=== PATIENT | male | born 1945 | race Caucasian/White ===

== ENCOUNTER 2019-06-05 16:48 | Emergency (ER) | payer MEDICARE, BC ==
[2019-06-05 17:30] LABS: Hemoglobin 7.4 g/dL (14.0-18.0); Mean Corpuscular HGB CONC 30.2 g/dL (32.0-36.0); Mean Corpuscular Hemoglobin 20.8 pg (27.0-31.0); Mean Corpuscular Volume 68.9 fL (78.0-98.0); Mean Platelet Volume 9.1 fL (7.4-10.4); Platelet Count 274 thou/uL (130-400); RBC Distribution Width 17.6 % (11.5-14.5); Red Blood Cell (RBC) Count 3.54 mill/uL (4.70-6.10); White Blood Cell (WBC) Count 6.5 thou/uL (4.8-10.8)
--- NOTE | 2019-06-05 17:52 | RAD ---
Exam: Chest one view HISTORY:Short of breath Comparison: 10/14/2009 FINDINGS: Lungs: Pleural-based densities at the mid and inferior right hemithorax are present. There are patchy bibasilar densities. Cardiac silhouette:Enlarged cardiac silhouette Pulmonary vessels: Prominent bilateral pulmonary vasculature Pleural Spaces: Blunting of the right lateral costophrenic sulcus, which may relate to atelectasis, s carring or mild pleural fluid. Pneumothorax: None Osseous abnormalities: None of acuity. IMPRESSION: Bibasilar patchy densities, which could be on the basis of atelectasis, scar and/or pneum onitis. Superimposed mild right pleural fluid is not excluded. Enlarged cardiac silhouette and prominent pulmonary vasculature, indicative of CHF. Correlate clinica lly.
[2019-06-05 17:59] LABS: #Basophils 0.1 thou/uL (0.0-0.2); #Eosinphils 0.1 thou/uL (0.0-0.7); #Lymphocytes 0.9 thou/uL (1.20-3.40); #Monocytes 0.4 thou/uL (0.11-0.59); %Basophils 1.1 % (0.0-1.0); %Eosinophils 1.8 % (0.0-10.0); %Lymphocytes 14.2 % (21.0-51.0); %Monocytes 6.8 % (0.0-10.0); %Neutrophils 76.1 % (42.0-75.0); ALT (SGPT) 10 U/L (8-55); AST (SGOT) 15 U/L (5-34); Albumin 4.1 g/dL (3.4-4.8); Alkaline Phosphatase 59 U/L (40-110); Anion Gap 13 mmol/L (10-20); Anisocytosis SLIGHT = 6-15 cells (100X) (0-5/hpf); BUN (Urea Nitrogen) 15 mg/dL (8.4-25.7); Calc. Creatinine Clearance 0 mL/min (70-130); Carbon Dioxide 26 mmol/L (23-31); Chloride 103 mmol/L (98-107); Estimated GFR-MDRD 64; Globulin 2.4 g/dL (2.4-3.5); Glucose 139 mg/dL (83-110); Hypochromia SLIGHT = 6-15 cells (100X) (0-5/hpf); MDiff Complete? YES; Microcytosis SLIGHT = 6-15 cells (100X) (0-5/hpf); Platelet Morphology Comment Appears Adequate; Polychromasia SLIGHT = 2-3 cells (100X) (0-2/hpf); Protein, Total 6.5 g/dL (5.8-8.1); Sodium 139 mmol/L (136-145)
[2019-06-05 18:01] LABS: Potassium 2.9 mmol/L (3.5-5.1)
== END 2019-06-05 19:16 | disposition left against medical advice (07) ==
LOC: ERS 16:48
DX: Z53.21 Procedure and treatment not carried out due to patient leaving prior to being seen by health care provider (principal)
CPT/HCPCS: 36415; 71045; 80053; 83880; 84484; 85025; 93005

== ENCOUNTER 2019-06-06 12:20 | Inpatient (IN) | payer MEDICARE, BC ==
[2019-06-06 14:00] LABS: Hemoglobin 7.7 g/dL (14.0-18.0); Mean Corpuscular HGB CONC 29.9 g/dL (32.0-36.0); Mean Corpuscular Hemoglobin 20.8 pg (27.0-31.0); Mean Corpuscular Volume 69.6 fL (78.0-98.0); Mean Platelet Volume 9.6 fL (7.4-10.4); Platelet Count 352 thou/uL (130-400); RBC Distribution Width 18.2 % (11.5-14.5); Red Blood Cell (RBC) Count 3.69 mill/uL (4.70-6.10); White Blood Cell (WBC) Count 8.9 thou/uL (4.8-10.8)
[2019-06-06 14:26] LABS: ALT (SGPT) 11 U/L (8-55); AST (SGOT) 17 U/L (5-34); Albumin 4.2 g/dL (3.4-4.8); Alkaline Phosphatase 61 U/L (40-110); Anion Gap 13 mmol/L (10-20); BUN (Urea Nitrogen) 17 mg/dL (8.4-25.7); CK (CPK) 226 U/L (30-200); Calc. Creatinine Clearance 0 mL/min (70-130); Calcium 9.7 mg/dL (7.8-10.44); Carbon Dioxide 28 mmol/L (23-31); Chloride 103 mmol/L (98-107); Estimated GFR-MDRD 62; Globulin 3.1 g/dL (2.4-3.5); Glucose 133 mg/dL (83-110); Protein, Total 7.3 g/dL (5.8-8.1); Sodium 141 mmol/L (136-145)
[2019-06-06 14:31] LABS: #Basophils 0.1 thou/uL (0.0-0.2); #Eosinphils 0.2 thou/uL (0.0-0.7); #Lymphocytes 1.5 thou/uL (1.20-3.40); #Monocytes 0.5 thou/uL (0.11-0.59); #Neutrophils 6.6 thou/uL (1.40-6.50); %Eosinophils 1.7 % (0.0-10.0); %Lymphocytes 16.9 % (21.0-51.0); %Monocytes 5.7 % (0.0-10.0); %Neutrophils 74.7 % (42.0-75.0); Anisocytosis SLIGHT = 6-15 cells (100X) (0-5/hpf); Elliptocytes SLIGHT = 2-5 cells (100X) (0-1/hpf); Hypochromia SLIGHT = 6-15 cells (100X) (0-5/hpf); MDiff Complete? YES; Microcytosis SLIGHT = 6-15 cells (100X) (0-5/hpf); Platelet Morphology Comment Appears Adequate
--- NOTE | 2019-06-06 16:33 | PDOC.FPRHP ---
- History of Present Illness Chief Complaint: shortness of breath History of Present Illness: 73 yo male complains of shortness of breath, but is short of breath at baseline , worse over the past 3-4 days, worse with walking to car. States he can't take a deep breath in. States he struggles walking stairs at football games. He came in yesterday for this complaint, felt like he was forgotten about, so he left. He has a pmhx of atrial fibrillation and sees cardiology for this. Sleeps in an elevated bed d/t orthopnea. Endorses swelling in his lower extremities. States he is borderline diabetic. Takes 4 advil every night for sleep. Takes zantac at night for belching, reflux sx. States he has had a low blood count for a while but has never had a colonoscopy. - Allergies/Adverse Reactions Allergies Allergy/AdvReac Type Severity Reaction Status Date / Time No Known Allergies Allergy Verified 06/06/19 18:48 - Home Medications Medication Instructions Recorded Confirmed Type Amlodipine [Norvasc] 10 mg PO DAILY 06/06/19 06/06/19 History Nebivolol HCl [Bystolic] 20 mg PO BID 06/06/19 06/06/19 History Ubidecarenone [CoQ-10] 400 mg PO DAILY 06/06/19 06/06/19 History Atorvastatin Calcium [Lipitor] 40 mg PO HS #30 tab 06/08/19 Rx Ferrous Sulfate 325 mg PO TID #90 tablet 06/08/19 Rx metFORMIN [Glucophage] 500 mg PO BID-WM #60 tab 06/08/19 Rx - History PMHx:pAF on plavix, HTN, Anemia, diabetes, hld PSHx: two prostate surgeries, bladder surgery 2/2 benign tumors FHx: dad- lung cancer, CAD s/p CABG Social:denies smoking, alcohol, drug use - Review of Systems General: reports: weight/appetite/sleep changes. denies: fever/chills, fatigue Respiratory: reports: shortness of breath, exercise intolerance. denies: cough , congestion Cardiovascular: reports: palpitation, orthopnea. denies: chest pain Gastrointestinal: reports: other (belching). denies: nausea, vomiting, diarrhea , abdominal pain Genitourinary: denies: incontinence, dysuria Skin: denies: rashes, lesions Musculoskeletal: denies: pain, tenderness Neurological: denies: numbness, syncope Psychological: denies: anxiety, depression - Vital signs BP: 163/90 HR: 70 RR: 20 Tmax: Pox: 96% on 3L Wt: - Physical Exam Constitutional: NAD, awake, alert and oriented, well developed HEENT: normocephalic and atraumatic, PERRLA Heart: RRR, normal S1/S2, no murmurs/rubs/gallops, no edema Lungs: CTAB, no respiratory distress, good air movement, no wheezing Abdomen: soft, non-tender, bowel sounds present Musculoskeletal: normal structure, normal tone Neurological: no focal deficit Skin: no rash/lesions, good turgor Heme/Lymphatic: no unusual bruising or bleeding Psychiatric: normal mood and affect, good judgment and insight FMR H&P: Results - Labs Result Diagrams: 06/09/19 05:40 06/09/19 05:40 Lab results: WBC 8.9 thou/uL (4.8-10.8) 06/06/19 13:20 Hgb 7.7 g/dL (14.0-18.0) L 06/06/19 13:20 Hct 25.7 % (42.0-52.0) L 06/06/19 13:20 MCV 69.6 fL (78.0-98.0) L 06/06/19 13:20 Plt Count 352 thou/uL (130-400) 06/06/19 13:20 Neutrophils % 74.7 % (42.0-75.0) 06/06/19 13:20 Sodium 141 mmol/L (136-145) 06/06/19 13:20 Potassium 3.0 mmol/L (3.5-5.1) L 06/06/19 13:20 Chloride 103 mmol/L (98-107) 06/06/19 13:20 Carbon Dioxide 28 mmol/L (23-31) 06/06/19 13:20 BUN 17 mg/dL (8.4-25.7) 06/06/19 13:20 Creatinine 1.16 mg/dL (0.7-1.3) 06/06/19 13:20 Glucose 133 mg/dL (83-110) H 06/06/19 13:20 Calcium 9.7 mg/dL (7.8-10.44) 06/06/19 13:20 Total Bilirubin 2.0 mg/dL (0.2-1.2) H 06/06/19 13:20 AST 17 U/L (5-34) 06/06/19 13:20 ALT 11 U/L (8-55) 06/06/19 13:20 Alkaline Phosphatase 61 U/L (40-110) 06/06/19 13:20 Creatine Kinase 226 U/L (30-200) H 06/06/19 13:20 Serum Total Protein 7.3 g/dL (5.8-8.1) 06/06/19 13:20 Albumin 4.2 g/dL (3.4-4.8) 06/06/19 13:20 - EKG Interpretation EK/15 atrial fibrillation inverted t wave in lead 3, otherwise no acute ischemic changes FMR H&P: A/P - Problem List (1) Symptomatic anemia Current Visit: Yes Status: Acute Code(s): D64.9 - ANEMIA, UNSPECIFIED (2) Hypokalemia Current Visit: Yes Status: Acute Code(s): E87.6 - HYPOKALEMIA (3) Hypertension Current Visit: Yes Status: Chronic Code(s): I10 - ESSENTIAL (PRIMARY) HYPERTENSION (4) Atrial fibrillation Current Visit: Yes Status: Acute Code(s): I48.91 - UNSPECIFIED ATRIAL FIBRILLATION (5) Diabetes Current Visit: Yes Status: Acute Code(s): E11.9 - TYPE 2 DIABETES MELLITUS WITHOUT COMPLICATIONS (6) Elevated brain natriuretic peptide (BNP) level Current Visit: Yes Status: Chronic Code(s): R79.89 - OTHER SPECIFIED ABNORMAL FINDINGS OF BLOOD CHEMISTRY (7) Hyperlipidemia Current Visit: Yes Status: Chronic Code(s): E78.5 - HYPERLIPIDEMIA, UNSPECIFIED - Plan 73 yo gentleman admitted for symptomatic anemia #symptomatic anemia- -d/t sx, was transfused one unit prbcs in the ER, will recheck 4 hours post transfusion -MCV low, suspect iron deficient anemia, however will order iron studies to further assess -ddx: acute blood loss anemia vs malignancy, however denies hematochezia, melena , hematemesis, but does endorses taking 4 advil every night "for sleep" 2/2 GERD -he has never had a colonoscopy, will trend H/H and consider GI consult in AM, however he refused a colonoscopy in the past, will order an FOBT in the meantime #hypokalemia- -will replace #Elevated BNP- -will recheck today, not fluid overloaded, would recommend outpatient TTE #Type 2 Diabetes- -hba1c, ssi, hypoglycemia protocol #Hyperlipidemia- -FLP, would recommend starting atorvastatin high intensity 2/2 hx of diabetes #htn- -restart amlodipine #afib -on plavix, however will hold d/t low H/H -continue bystolic CODE: DNR DVT: SCDs Dispo: if stable consider dc tomorrow Rolando Barraza MD, PGY-3 FMR H&P: Upper Level - Plan Date/Time: 06/06/19 1631 I, [], have evaluated this patient and agree with findings/plan as outlined by graphics intern resident. Pertinent changes/additions are listed here. Addendum - Attending - Attending Attestation Date/Time: 06/09/19 1047 I personally evaluated the patient and discussed the management with Dr. Isabel/ Madi on 06/06/2019 I agree with the History, Examination, Assessment and Plan documented above with any addition or exceptions noted below- 73 yo male with h/o A-fib, HTN, DM presented c/o SOB; worse over the past 3-4 days, worse with walking to car. Was seen in ER yesterday and found to be anemic but left before further evaluation due to thewait. Contacted by his director staffing and instructed to return to ER. Denies any CP, melena, hematochezi, change in bowels, abdominal pain. (+) heartburn. PMH/PSH/Med/SH reviewed and agree with resident's documentation. Afebrile VSS. Exam repeated by me and agree with resident's findings. Labs: H/H= 7.7/25.7 A/P: 1) Anemia- possible GI bleed- transfused 1 u pRBCs. Mnitor serial H/Hs. GI consulted. 2) A-fib- rate controlled. 3) HTN- stable; continue to monitor. - .
[2019-06-06] MEDS ORDERED: HumaLOG 300 UNITS/3 ML VIAL SC PRN (16:53)
[2019-06-06] MEDS ORDERED: Dextrose 50% Abboject 50 ML SYRINGE SLOW IVP PRN (16:53)
[2019-06-06] MEDS ORDERED: Acetaminophen 650 MG Suppository PR PRN (16:53)
[2019-06-06] MEDS ORDERED: Ondansetron ODT 4 MG TAB PO PRN (16:53)
[2019-06-06] MEDS ORDERED: Ondansetron PF 4 MG/2 ML Vial IVP PRN (16:53)
[2019-06-06] MEDS ORDERED: Dextrose 5% in Water 1,000 ML IV PRN (16:53)
[2019-06-06] MEDS ORDERED: Acetaminophen 325 MG TAB PO PRN (16:53)
[2019-06-06 16:59] LABS: Troponin I Less than 0.010 ng/mL (< 0.028)
[2019-06-06] MEDS ORDERED: Potassium Chloride 20 MEQ TAB PO SCH (17:15)
[2019-06-06 17:37] LABS: Reticulocyte Count 3.1 % (0.5-1.5)
[2019-06-06 17:53] LABS: Phosphorus 3.5 mg/dL (2.3-4.7)
[2019-06-06 17:56] LABS: Cardiac Risk 5.3 (Less than 4.5); Magnesium 1.9 mg/dL (1.6-2.6)
[2019-06-06 18:57] VITALS: BMI 30.9
[2019-06-06 19:51] LABS: Troponin I Less than 0.010 ng/mL (< 0.028)
[2019-06-06] MEDS: Pantoprazole 40 MG VIAL IVP SCH (20:12)
[2019-06-06 21:27] LABS: Hemoglobin 7.6 g/dL (14.0-18.0)
[2019-06-06] MEDS ORDERED: Fluticasone Propionate Nasal Spray 16 gm Bottle NASAL SCH (21:30)
[2019-06-06] MEDS ORDERED: Lidocaine 2% Viscous Solution 20 ML, Aluminum & Magnesium Hydroxide 30 ML, Donnatal Eli... SSW SCH (22:30)
[2019-06-06] MEDS ORDERED: GoLYTELY 4,000 ml Bottle PO SCH (22:45)
--- NOTE | 2019-06-07 01:06 | CON ---
DATE OF CONSULTATION: 06/06/2019 CHIEF COMPLAINT: Shortness of breath and chest pressure. HISTORY OF PRESENT ILLNESS: Mr. Hurley is a 73-year-old man who has had progressive shortness of breath on exertion over the last several days. Feels like he cannot take a full deep breath. He gets short of breath walking up any stairs or relatively short distances. He is followed with Dr. Ward for atrial fibrillation and has been on clopidogrel. He was found to have severe anemia when he went to the emergency room last night. However, he left the ER and then went back today for further care. He received a unit of transfusion. He does report some orthopnea lately. He has been taking Advil, 4 Advil each night to help sleep. He has taken some Zantac for reflux and belching. He did note lower extremity swelling yesterday more so than today. The swelling has gone down today. He reports a 40-pound weight loss over the last 7 to 8 months. He was 300 pounds and has lost down to 260 pounds. He states that this was with eating smaller meals. PAST MEDICAL HISTORY: Paroxysmal atrial fibrillation, hypertension, diabetes mellitus, hyperlipidemia, and anemia. PAST SURGICAL HISTORY: Prostate surgery and bladder surgery. FAMILY HISTORY: His mother had a large colon polyp requiring colon resection. His father had lung cancer. SOCIAL HISTORY: No alcohol, tobacco, or drugs. ALLERGIES: NO KNOWN DRUG ALLERGIES. MEDICATIONS: Prior to admission, amlodipine, clopidogrel, nebivolol, Advil as noted above, and Zantac as noted above. REVIEW OF SYSTEMS: Negative x10 systems reviewed except as stated in history of present illness. PHYSICAL EXAMINATION: VITAL SIGNS: Temperature 98.1, pulse 98, blood pressure 150/70, oxygen saturation 97%. GENERAL: He is in no acute distress. Alert and oriented x3. HEENT: Eyes have no scleral icterus. Oropharynx is clear without lesions. No cervical or supraclavicular lymphadenopathy. LUNGS: Clear to auscultation bilaterally. HEART: Regular rate and rhythm without murmur. ABDOMEN: Soft, nontender, and nondistended. Bowel sounds are present. EXTREMITIES: No lower extremity edema. LABORATORY DATA: His hemoglobin was 7.4 last night, 7.7 this afternoon and then after 1 unit transfusion, his hemoglobin is 7.6, MCV 69, white blood cell count 8.9, platelets are 352. Iron 23, TIBC 466, creatinine 1.16, BNP 365, bilirubin 2.0, AST 17, ALT 11, alkaline phosphatase 61. He had a hemoglobin A1c back in December of 2018 of 8.4. IMPRESSION: 1. Symptomatic iron-deficiency anemia. He has had no overt gastrointestinal blood loss. He has been on Plavix and Advil. His mother had a large colon polyp that required colon resection. 2. Paroxysmal atrial fibrillation, on Plavix. 3. Shortness of breath and chest heaviness. He ruled out for myocardial infarction by troponins. 4. 40-pound weight loss over the last 7 to 8 months. 5. Diabetes mellitus. This has not been treated with medications as of yet. RECOMMENDATIONS: 1. He will require an EGD and colonoscopy. 2. He is receiving blood transfusion tonight. We will plan for a clear-liquid diet tomorrow and then a bowel prep tomorrow afternoon for EGD and colonoscopy on Tuesday. 3. Cardiology consultation with Dr. Ward prior to anesthesia on Tuesday. He has had some ongoing shortness of breath and chest heaviness. This is likely secondary to the anemia. However, given his prior cardiac history, I would like input from Cardiology prior to anesthesia. 4. NSAID avoidance. Job ID: [id number]
[2019-06-07] MEDS ORDERED: diphenhydrAMINE 25 MG CAP PO SCH (02:15)
[2019-06-07] MEDS ORDERED: diphenhydrAMINE 50 MG/ML VIAL IVP SCH (02:30)
[2019-06-07 05:29] LABS: #Basophils 0.1 thou/uL (0.0-0.2); #Eosinphils 0.2 thou/uL (0.0-0.7); #Lymphocytes 1.3 thou/uL (1.20-3.40); #Monocytes 0.4 thou/uL (0.11-0.59); #Neutrophils 5.8 thou/uL (1.40-6.50); %Basophils 0.8 % (0.0-1.0); %Eosinophils 2.2 % (0.0-10.0); %Lymphocytes 16.5 % (21.0-51.0); %Monocytes 5.3 % (0.0-10.0); %Neutrophils 75.2 % (42.0-75.0); Hemoglobin 8.1 g/dL (14.0-18.0); Mean Corpuscular HGB CONC 30.1 g/dL (32.0-36.0); Mean Corpuscular Hemoglobin 21.8 pg (27.0-31.0); Mean Corpuscular Volume 72.3 fL (78.0-98.0); Mean Platelet Volume 9.6 fL (7.4-10.4); Platelet Count 289 thou/uL (130-400); RBC Distribution Width 19.1 % (11.5-14.5); Red Blood Cell (RBC) Count 3.74 mill/uL (4.70-6.10); White Blood Cell (WBC) Count 7.8 thou/uL (4.8-10.8)
[2019-06-07 05:53] LABS: Anion Gap 14 mmol/L (10-20); BUN (Urea Nitrogen) 15 mg/dL (8.4-25.7); Calc. Creatinine Clearance 107 mL/min (70-130); Carbon Dioxide 22 mmol/L (23-31); Chloride 107 mmol/L (98-107); Estimated GFR-MDRD 71; Glucose 146 mg/dL (83-110); Potassium 3.1 mmol/L (3.5-5.1); Sodium 140 mmol/L (136-145)
[2019-06-07] MEDS ORDERED: Ferrous Sulfate 325 MG TAB PO SCH (08:00)
--- NOTE | 2019-06-07 08:18 | PDOC.FM ---
- Subjective Subjective: Pt says he is feeling better this morning, just "weak as hell." Denies SOB today , describes previous episodes as if he could not get a full deep breath. Denies pleuritic pain. No issues w/ bowel or bladder. Leg swelling has improved; yesterday L leg swelling was > R. - Objective MAR Reviewed: Yes Vital Signs & Weight: Vital Signs (12 hours) Temp Pulse Resp Pulse Ox 06/07/19 06:45 98.1 F 62 18 97 06/07/19 04:00 77 18 96 06/07/19 03:45 98.2 F 73 18 Weight Weight 117.299 kg Most Recent Monitor Data NIBP 148/70 I&O: 06/06/19 06/07/19 06/08/19 06:59 06:59 06:59 Intake Total 500 Output Total 800 Balance -300 Result Diagrams: 06/07/19 05:13 06/07/19 05:13 Radiology Reviewed by me: Yes (CT images and report) Phys Exam - Physical Examination Constitutional: NAD HEENT: moist MMs, sclera anicteric Respiratory: no wheezing, clear to auscultation bilateral Cardiovascular: RRR, no significant murmur, no rub Gastrointestinal: soft, non-tender, no distention, positive bowel sounds Musculoskeletal: no edema, pulses present Neurological: non-focal, moves all 4 limbs Psychiatric: normal affect, A&O x 3 Skin: no rash Dx/Plan (1) Atrial fibrillation Code(s): I48.91 - UNSPECIFIED ATRIAL FIBRILLATION Status: Acute (2) Diabetes Code(s): E11.9 - TYPE 2 DIABETES MELLITUS WITHOUT COMPLICATIONS Status: Acute (3) Elevated brain natriuretic peptide (BNP) level Code(s): R79.89 - OTHER SPECIFIED ABNORMAL FINDINGS OF BLOOD CHEMISTRY Status : Chronic (4) Hyperlipidemia Code(s): E78.5 - HYPERLIPIDEMIA, UNSPECIFIED Status: Chronic (5) Hypertension Code(s): I10 - ESSENTIAL (PRIMARY) HYPERTENSION Status: Chronic (6) Hypokalemia Code(s): E87.6 - HYPOKALEMIA Status: Acute (7) Symptomatic anemia Code(s): D64.9 - ANEMIA, UNSPECIFIED Status: Acute - Plan Plan: 73 yo gentleman admitted for symptomatic anemia presenting as shortness of breath: Symptomatic anemia -Hgb 8.1 s/p 2 units PRBC -suspect iron deficiency anemia due to low MCV, low iron, High TIBC and appropriately high reticulocyte count -DDx: chronic blood loss anemia causing iron deficiency anemia vs iron deficiency anemia -he has never had a colonoscopy -GI saw last night, recs EGD/colonoscopy tomorrow, bowel prep this afternoon -Cardiology consult prior to anesthesia -Will speak w/ patient regarding his desire to undergo such procedures Hypokalemia -replace and monitor Elevated BNP -Dr. Ward for cardiac clearance. Pt euvolemic on exam Type 2 Diabetes, newly diagnosed -Hba1c is 8.4 although pt thought he was prediabetic -Mild SSI for now Hyperlipidemia -FLP -begin atorvastatin high intensity 2/2 hx of diabetes on discharge HTN -amlodipine A-fib -on plavix, however will hold d/t low H/H -continue bystolic CODE: DNR DVT: SCDs Dispo: telemetry, inpatient
[2019-06-07] MEDS ORDERED: Potassium Chloride 20 MEQ in Premix Bag 1 BAG IVPB SCH (09:30)
[2019-06-07] MEDS: Pantoprazole 40 MG VIAL IVP SCH ×2 (09:51→19:51)
[2019-06-07 11:15] LABS: #Basophils 0.1 thou/uL (0.0-0.2); #Eosinphils 0.1 thou/uL (0.0-0.7); #Monocytes 0.4 thou/uL (0.11-0.59); #Neutrophils 5.7 thou/uL (1.40-6.50); %Basophils 1.1 % (0.0-1.0); %Eosinophils 1.4 % (0.0-10.0); %Lymphocytes 13.2 % (21.0-51.0); %Monocytes 5.2 % (0.0-10.0); %Neutrophils 79.1 % (42.0-75.0); Hemoglobin 8.7 g/dL (14.0-18.0); Mean Corpuscular HGB CONC 29.7 g/dL (32.0-36.0); Mean Corpuscular Hemoglobin 21.5 pg (27.0-31.0); Mean Corpuscular Volume 72.2 fL (78.0-98.0); Mean Platelet Volume 9.5 fL (7.4-10.4); Platelet Count 279 thou/uL (130-400); RBC Distribution Width 19.3 % (11.5-14.5); Red Blood Cell (RBC) Count 4.04 mill/uL (4.70-6.10); White Blood Cell (WBC) Count 7.2 thou/uL (4.8-10.8)
[2019-06-07] MEDS ORDERED: Sodium Chloride 0.9% 1,000 ML IV SCH (11:15)
--- NOTE | 2019-06-07 11:51 | PRG ---
DATE OF SERVICE: 06/07/2019 Mr. Hurley is a pleasant 73-year-old man, who was admitted with chief complaints of shortness of breath over the last 3 to 4 days. He was noticed in the ER to have a hemoglobin level of 7.7 and has been admitted for further workup. He has already been seen by the GI Service in anticipation of doing EGD tomorrow and colonoscopy. We will await their recommendations. He has been transfused to a hemoglobin now of 8.7 and feels better. Job ID: [id number]
[2019-06-07 11:54] LABS: Hypochromia MODERATE=16-30 cells (100X) (0-5/hpf); MDiff Complete? YES; Microcytosis MODERATE=15-30 cells (100X) (0-5/hpf); Ovalocytes SLIGHT = 2-5 cells (100X) (0-1/hpf); Platelet Morphology Comment Appears Adequate; Polychromasia MODERATE = 3-4 cells (100X) (0-2/hpf)
[2019-06-07] MEDS ORDERED: Amlodipine 10 MG TAB PO SCH (13:45)
[2019-06-07] MEDS ORDERED: Nebivolol HCl 5 MG TAB PO SCH (14:00)
--- NOTE | 2019-06-07 16:52 | CON ---
DATE OF CONSULTATION: HISTORY OF PRESENT ILLNESS: The patient is a 73-year-old gentleman with a history of atrial fibrillation, who presented with weakness and dyspnea. The patient has a long history of atrial fibrillation, he has been on chronic anticoagulation therapy. The patient has been taking extra doses of Motrin, he suddenly started feeling weak and presented to the emergency room. The patient reported having increasing dyspnea. He reported having chest discomfort when he took a deep breath. The patient subsequently has been transfused. He denies any further dyspnea or chest discomfort. PAST MEDICAL HISTORY: 1. Atrial fibrillation. 2. Hypertension. 3. Dyslipidemia. 4. Obesity. PAST SURGICAL HISTORY: None. SOCIAL HISTORY: Nonsmoker. ALLERGIES: NO KNOWN DRUG ALLERGIES. REVIEW OF SYSTEMS: Ten-point system otherwise unremarkable. PHYSICAL EXAMINATION: GENERAL: Obese gentleman, in no acute distress. VITAL SIGNS: Blood pressure 164/75. NECK: No jugular venous distention. LUNGS: Clear to auscultation. HEART: Irregular rate and rhythm with a normal S1 and S2 and no murmurs. ABDOMEN: Distended. EXTREMITIES: Showed mild edema. VASCULAR: Radial pulses are 2+. LABORATORY DATA: hematocrit 29.2, and platelets were 279. IMPRESSION: 1. Gastrointestinal hemorrhage. 2. Chronic atrial fibrillation. 3. Hypertension. 4. Diabetes mellitus. 5. Obesity. This gentleman presents with GI hemorrhage. He developed dyspnea and chest discomfort with his development of severe anemia. At this time, as he is asymptomatic, he should be able to proceed with this colonoscopy and endoscopy. We will follow this patient with you through his hospitalization. We will continue to hold his Eliquis. Please call my office. Job ID: [id number]
[2019-06-07] MEDS: Atorvastatin Calcium 40 MG TAB PO SCH (19:51)
--- NOTE | 2019-06-07 23:03 | PRG ---
DATE OF SERVICE: 06/07/2019 SUBJECTIVE: Mr. Hurley feels much better today after second unit of blood transfusion. He has been up walking around without shortness of breath. He has had no abdominal pain or overt bleeding. He took a bowel prep this afternoon. He is passing clear yellow stool. OBJECTIVE: VITAL SIGNS: Temperature 97.5, pulse 76, blood pressure 133/74. GENERAL: He is in no acute distress. Alert and oriented x3. HEENT: Eyes have no scleral icterus. Oropharynx is clear without lesions. No cervical or supraclavicular lymphadenopathy. LUNGS: Clear to auscultation bilaterally. HEART: Regular rate and rhythm without murmur. ABDOMEN: Soft, nontender, nondistended. Bowel sounds are present. EXTREMITIES: 2+ pitting lower extremity edema. IMPRESSION: 1. Iron-deficiency anemia, status post 3 units transfusion. He has been on Advil and Plavix. He does have a family history of advanced colon polyp in his mother. 2. Paroxysmal atrial fibrillation, on Plavix. 3. 40-pound weight loss over the last 7 to 8 months. 4. Diabetes mellitus, which has not been treated previously. 5. Symptomatic anemia with shortness of breath and chest heaviness, has now greatly improved after second unit transfusion. RECOMMENDATIONS: EGD and colonoscopy tomorrow. Job ID: [id number]
[2019-06-08 05:32] LABS: #Basophils 0.1 thou/uL (0.0-0.2); #Eosinphils 0.2 thou/uL (0.0-0.7); #Lymphocytes 1.2 thou/uL (1.20-3.40); #Monocytes 0.4 thou/uL (0.11-0.59); #Neutrophils 4.7 thou/uL (1.40-6.50); %Eosinophils 3.3 % (0.0-10.0); %Lymphocytes 18.1 % (21.0-51.0); %Monocytes 5.9 % (0.0-10.0); %Neutrophils 71.7 % (42.0-75.0); Hemoglobin 8.3 g/dL (14.0-18.0); Mean Corpuscular HGB CONC 30.5 g/dL (32.0-36.0); Mean Corpuscular Hemoglobin 21.8 pg (27.0-31.0); Mean Corpuscular Volume 71.4 fL (78.0-98.0); Mean Platelet Volume 9.6 fL (7.4-10.4); Platelet Count 261 thou/uL (130-400); RBC Distribution Width 19.1 % (11.5-14.5); Red Blood Cell (RBC) Count 3.79 mill/uL (4.70-6.10); White Blood Cell (WBC) Count 6.6 thou/uL (4.8-10.8)
[2019-06-08 05:48] LABS: Anion Gap 10 mmol/L (10-20); BUN (Urea Nitrogen) 8 mg/dL (8.4-25.7); Calc. Creatinine Clearance 125 mL/min (70-130); Calcium 8.7 mg/dL (7.8-10.44); Carbon Dioxide 28 mmol/L (23-31); Chloride 105 mmol/L (98-107); Estimated GFR-MDRD 86; Glucose 111 mg/dL (83-110); Sodium 140 mmol/L (136-145)
[2019-06-08 05:54] LABS: Potassium 2.7 mmol/L (3.5-5.1)
--- NOTE | 2019-06-08 06:11 | PDOC.FM ---
- Subjective Subjective: Pt is feeling "good" this AM. He finished his bowel prep regimen early in the evening last night. He has started having nausea this morning. also reports "heaviness" in his chest which feels like his SOB prior to admission. Denies radiation of pain and points to L side of chest to indicate where the heaviness is. - Objective MAR Reviewed: Yes Vital Signs & Weight: Vital Signs (12 hours) Temp Pulse Resp BP BP Pulse Ox 06/08/19 04:00 98 F 77 18 161/72 H 92 L 06/08/19 00:00 79 145/64 H 06/07/19 20:00 98.3 F 73 18 143/73 H 96 Weight Weight 118.932 kg Most Recent Monitor Data NIBP 148/70 I&O: 06/06/19 06/07/19 06/08/19 06:59 06:59 06:59 Intake Total 500 5450 Output Total 800 375 Balance -300 5075 Result Diagrams: 06/08/19 05:08 06/08/19 05:08 Phys Exam - Physical Examination Constitutional: NAD HEENT: sclera anicteric nonlabored breathing well perfused Gastrointestinal: no distention Musculoskeletal: no edema Psychiatric: normal affect, A&O x 3 Skin: no rash Dx/Plan (1) Atrial fibrillation Code(s): I48.91 - UNSPECIFIED ATRIAL FIBRILLATION Status: Acute (2) Diabetes Code(s): E11.9 - TYPE 2 DIABETES MELLITUS WITHOUT COMPLICATIONS Status: Acute (3) Elevated brain natriuretic peptide (BNP) level Code(s): R79.89 - OTHER SPECIFIED ABNORMAL FINDINGS OF BLOOD CHEMISTRY Status : Chronic (4) Hyperlipidemia Code(s): E78.5 - HYPERLIPIDEMIA, UNSPECIFIED Status: Chronic (5) Hypertension Code(s): I10 - ESSENTIAL (PRIMARY) HYPERTENSION Status: Chronic (6) Hypokalemia Code(s): E87.6 - HYPOKALEMIA Status: Acute (7) Symptomatic anemia Code(s): D64.9 - ANEMIA, UNSPECIFIED Status: Acute - Plan Plan: 73 yo gentleman admitted for symptomatic anemia presenting as shortness of breath: Symptomatic iron deficiency anemia -Hgb stable today -most likely iron deficiency anemia due to low MCV, low iron, High TIBC and appropriately high reticulocyte count, ferritin normal -DDx: chronic blood loss anemia causing iron deficiency anemia vs iron deficiency anemia -he has never had a colonoscopy -EGD/colonoscopy today -GI consulted, appreciate recs -Cardiology consulted and cleared for procedure Hypokalemia -replace and monitor, 2.7 this AM, likely worsened w/ bowel prep and frequent stools Elevated BNP -Dr. Ward for cardiac clearance. Pt euvolemic on exam Type 2 Diabetes, newly diagnosed -Hba1c is 8.4 although pt thought he was prediabetic -Mild SSI for now -Metformin on discharge, f/u w/ PCP Hyperlipidemia -FLP normal -atorvastatin 40mg qhs HTN -amlodipine A-fib -on plavix, however will hold d/t low H/H -continue bystolic CODE: DNR DVT: SCDs Dispo: telemetry, inpatient
[2019-06-08] MEDS ORDERED: Potassium Chloride 20 MEQ in Premix Bag 1 BAG IVPB SCH ×2 (06:15→10:45)
[2019-06-08] MEDS ORDERED: Potassium Chloride 20 MEQ TAB PO SCH (08:00)
[2019-06-08] MEDS: Amlodipine 10 MG TAB PO SCH (09:00)
[2019-06-08] MEDS: Nebivolol HCl 5 MG TAB PO SCH ×2 (09:00→19:43)
[2019-06-08] MEDS ORDERED: Nebivolol HCl 5 MG TAB PO SCH (09:00)
[2019-06-08] MEDS: Pantoprazole 40 MG VIAL IVP SCH ×2 (10:27→19:44)
--- NOTE | 2019-06-08 12:17 | PRG ---
DATE OF SERVICE: 06/08/2019 Mr. Hurley is down for an EGD. His potassium this morning was quite low and we are replacing this with both IV and p.o. potassium. Further treatment depends on the results of the EGD. Job ID: [id number]
--- NOTE | 2019-06-08 14:56 | OP ---
DATE OF PROCEDURE: 06/08/2019 PROCEDURES PERFORMED: 1. Esophagogastroduodenoscopy with biopsy. 2. Colonoscopy with biopsy. 3. Submucosal injection. 4. Polypectomy. INDICATIONS FOR PROCEDURE: Iron-deficiency anemia. DESCRIPTION OF PROCEDURE: After the risks and benefits of the procedures were explained to the patient, including risks of bleeding, infection, perforation, reactions to anesthesia, aspiration, and/or pain, informed consent was obtained. The patient was then taken to the endoscopy suite, where he was placed in the left lateral decubitus position. Upon adequate placement, the patient then underwent deep sedation with propofol via Anesthesia support. Once adequate sedation was achieved, the standard gastroscope was introduced into the mouth with intubation of the esophagus, stomach, and the proximal small intestines with the findings listed below. Upon conclusion of this phase of the procedures, all equipment was removed from the patient. The bed was rotated 180 degrees in anticipation of the colonoscopy. This was followed by a digital rectal examination, and once complete, the standard colonoscope was introduced into the rectum and advanced to the terminal ileum without difficulty. The quality of the prep was fair with a moderate amount of retained adherent mucoid and liquid stool. With aggressive irrigation and suctioning, inadequate visualization was still present with lesions less than 5 mm in size, it could be missed. The patient tolerated this portion of the procedure well with no immediate perioperative complications. Upon conclusion of the colonoscopy, all equipment was removed and the patient was transferred to PACU in satisfactory condition. EGD FINDINGS: 1. Esophagus: Normal-appearing mucosa was seen in the proximal, mid, and distal esophagus. There was no evidence of erosions, ulcerations, mass, lesions, or active/recent bleeding. 2. Stomach: Multiple small (3 to 5 mm) kowalski-colored polyp was seen in the gastric fundus and body, that did not exhibit any overt ulceration or evidence of active/recent bleeding. Multiple biopsies were taken from these polyps from a credit representative sample for further evaluation. Otherwise normal-appearing mucosa was seen in the gastric cardia, proximal fundus, greater curvature, antrum, and incisura. Random gastric biopsies were also taken from this region given the finding of a duodenal ulcer further explained. There was no evidence of erosions, ulcerations, mass, lesions, or active/recent bleeding seen in the stomach. 3. Duodenum: A 2 to 3 mm superficial ulceration was seen in the duodenal bulb just as it enters the duodenal sweep. There was no high-risk stigmata of active or recent bleeding associated with this lesion. Otherwise, normal-appearing mucosa was seen in the proximal bulb and within the second portion of the duodenum itself. Multiple random biopsies were taken from the duodenum for evaluation of possible celiac sprue contributing to his iron-deficiency anemia. There was no evidence of mass, lesions, or active/recent bleeding. IMPRESSION: 1. Multiple kowalski-colored polyps in the stomach, consistent with fundic gland polyps, status post biopsies. 2. A 2 to 3 mm superficial ulceration in the junction between the duodenal bulb and duodenal sweep, concerning for nonsteroidal anti-inflammatory drugs-duodenitis versus Helicobacter pylori. Random gastric biopsies were taken for evaluation of this. COLONOSCOPY FINDINGS: 1. Digital rectal exam: Normal findings were seen on external examination. 2. Colon findings: Normal-appearing mucosa was seen in the terminal ileum except when the colonoscope visualized the distal terminal ileum right before the ileocecal valve. There was a 5-mm polyp within that portion. This polyp was completely removed with snare cautery polypectomy and placed in a specimen jar for evaluation. Otherwise normal-appearing mucosa was seen within the terminal ileum. Normal-appearing mucosa was then seen at the appendiceal orifice and the distal cecum; however, just above the ileocecal valve and extending into the proximal ascending colon, there was a large polypoid nonobstructive mass, measuring approximately 5 x 6 cm in size. This mass occupied approximately 30% of the colonic lumen and was not considered obstructive. Multiple biopsies were taken from this lesion for further evaluation. Tattoos were then placed on the distal end of the lesion itself for further evaluation and/or possible surgical resection. Normal-appearing mucosa was then seen in the distal ascending colon. A 4 to 5 mm polyp was seen in the transverse colon and completely removed with hot snare polypectomy. It was retrieved and placed in a specimen jar for evaluation. An additional 4-mm polyp was seen in the descending colon and completely removed with snare cautery polypectomy. It was retrieved and placed in a specimen jar for evaluation. Within the distal descending and sigmoid colons, multiple small and large diverticula were seen without evidence of diverticulosis. Normal-appearing mucosa was then seen within the rectum itself with small to medium-sized internal hemorrhoids seen on rectal retroflexion. IMPRESSION: 1. A 5-mm terminal ileum polyp status post snare cautery polypectomy. 2. A large nonobstructive mass seen in the proximal ascending colon just distal to the ileocecal valve, measuring 5 x 6 cm in size, status post biopsies and tattoo, consistent with probable malignancy. 3. A 4 to 5 mm transverse colon polyp status post hot snare. 4. A 4-mm descending colon polyp status post hot snare five. 5. Severe left-sided diverticulosis. 6. Small to medium-sized internal hemorrhoids. RECOMMENDATIONS: 1. We will follow up on the biopsy results with repeat upper endoscopy based on pathology report. We would recommend a repeat colonoscopy in 6 to 12 months based on the fair prep and the presence of probable colonic malignancy today. 2. We would obtain a CT scan of the abdomen and pelvis and chest as part of staging for this colonic malignancy. 3. We would continue to trend his hemoglobin and hematocrit and transfuse as necessary to maintain hemoglobin and hematocrit of 7/21. 4. Continue to monitor clinically for signs of active GI bleeding. 5. Can advance the patient's diet. 6. Would refrain from any anticoagulation for the next 48 hours, then restart if deemed necessary. 7. We would consult both Surgical Oncology and Medical Oncology Services for further evaluation of this probable colonic malignancy. We will continue to follow. Please call with any questions. Job ID: [id number]
--- NOTE | 2019-06-08 16:06 | CT ---
CT THORAX WITH CONTRAST CT ABDOMEN WITH CONTRAST CT PELVIS WITH CONTRAST: DATE: 06/08/2019 HISTORY: 73-year-old male with large colonic tumor mass found on colonoscopy. COMPARISON: None TECHNIQUE: IV iodinated contrast media: Administered Oral contrast media: Administered Single phase scans of thorax, abdomen, and pelvis. FINDINGS: In the lumen of the proximal aspect of the ascending colon, just medial to, and probably involving, t he ileocecal valve, and involving cecum, there is a soft tissue density mass measuring approximately 5.5 x 4 x 4 cm, with irregular margins. Sigmoid colonic diverticulosis without divertic ulitis. No small bowel dilation. Liver is normal with no evidence of metastasis. Bilateral kidneys, adrenals, pancreas, spleen, and appendix, are normal. Atherosclerosis without aneurysm of abdominal a phyllis. Small right pleural effusion and tiny left pleural effusion. No mesenteric, retroperitoneal, iliac chain, or dinorah hepatis, lymphadenopathy. Empty urinary bladder. No destructive osseous lesion. No thoracic aortic aneurysm. No pericardial effusion. No mediastinal or hilar lymphadenopathy. No boo picious pulmonary nodules. No pulmonary edema or pneumothorax. 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 No obstruction. 2) no evidence of metastatic disease. 3) small bilateral pleural effusions, right greater than left.
[2019-06-08 17:02] LABS: Anion Gap 12 mmol/L (10-20); BUN (Urea Nitrogen) 7 mg/dL (8.4-25.7); Calc. Creatinine Clearance 119 mL/min (70-130); Calcium 9.1 mg/dL (7.8-10.44); Carbon Dioxide 26 mmol/L (23-31); Chloride 105 mmol/L (98-107); Estimated GFR-MDRD 80; Glucose 104 mg/dL (83-110); Potassium 3.1 mmol/L (3.5-5.1); Sodium 140 mmol/L (136-145)
[2019-06-08] MEDS ORDERED: metFORMIN 500 MG TAB PO SCH (17:15)
[2019-06-08] MEDS ORDERED: Ferrous Sulfate 325 MG TAB PO SCH (17:15)
[2019-06-08] MEDS: Potassium Chloride 20 MEQ TAB PO SCH (18:02)
[2019-06-08] MEDS: Atorvastatin Calcium 40 MG TAB PO SCH (19:43)
[2019-06-08] MEDS ORDERED: Polyethylene Glycol 3350 17 GM Packet PO SCH (21:00)
[2019-06-08 22:31] LABS: Anion Gap 12 mmol/L (10-20); BUN (Urea Nitrogen) 7 mg/dL (8.4-25.7); Calc. Creatinine Clearance 87 mL/min (70-130); Calcium 9.2 mg/dL (7.8-10.44); Carbon Dioxide 26 mmol/L (23-31); Chloride 106 mmol/L (98-107); Estimated GFR-MDRD 56; Glucose 131 mg/dL (83-110); Potassium 3.4 mmol/L (3.5-5.1); Sodium 141 mmol/L (136-145)
--- NOTE | 2019-06-09 05:57 | PDOC.FM ---
- Subjective Subjective: Pt feeling well this morning. No complaints or events over night. Pt states that his PCP is Dr. Lemos and is looking for a physician that is closer - interested in following up with our clinic. - Objective Vital Signs & Weight: Vital Signs (12 hours) Temp Pulse Resp BP BP Pulse Ox 06/09/19 04:30 98.6 F 74 20 142/66 H 93 L 06/09/19 00:00 98.4 F 78 20 162/77 H 92 L 06/08/19 20:55 96 06/08/19 19:30 98.6 F 88 20 145/80 H 96 Weight Weight 118.932 kg Most Recent Monitor Data NIBP 148/70 I&O: 06/07/19 06/08/19 06/09/19 06:59 06:59 06:59 Intake Total 500 5950 240 Output Total 800 375 Balance -300 5575 240 Result Diagrams: 06/09/19 05:40 06/09/19 05:40 Phys Exam - Physical Examination Constitutional: NAD HEENT: moist MMs, sclera anicteric Neck: full ROM Respiratory: no wheezing, no rales, no rhonchi, clear to auscultation bilateral Cardiovascular: RRR, no significant murmur Gastrointestinal: soft, non-tender, no distention, positive bowel sounds Musculoskeletal: no edema, pulses present Neurological: non-focal, moves all 4 limbs Psychiatric: normal affect, A&O x 3 Dx/Plan (1) Colon adenocarcinoma Code(s): C18.9 - MALIGNANT NEOPLASM OF COLON, UNSPECIFIED Status: Suspected (2) Diabetes Code(s): E11.9 - TYPE 2 DIABETES MELLITUS WITHOUT COMPLICATIONS Status: Acute (3) Hypokalemia Code(s): E87.6 - HYPOKALEMIA Status: Acute (4) Symptomatic anemia Code(s): D64.9 - ANEMIA, UNSPECIFIED Status: Acute (5) Hyperlipidemia Code(s): E78.5 - HYPERLIPIDEMIA, UNSPECIFIED Status: Chronic (6) Hypertension Code(s): I10 - ESSENTIAL (PRIMARY) HYPERTENSION Status: Chronic - Plan Plan: Symptomatic iron deficiency anemia - 2/2 adenocarcinoma of the colon -Hgb stable today -egd/colonoscopy yesterday: mass in cecum consistent with colonic adenocarcinoma , 3mm superficial duodenal ulcer -CT chest/abd/pelvis: no evidence of malignancy -most likely iron deficiency anemia due to low MCV, low iron, High TIBC and appropriately high reticulocyte count, ferritin normal -pt to f/u outpt w/ surg-onc for further management Hypokalemia -replace and monitor, 2.9 this AM, likely worsened w/ bowel prep and frequent stools -repeat BMP this afternoon Elevated BNP -Dr. Ward for cardiac clearance. Pt euvolemic on exam Type 2 Diabetes, newly diagnosed -Hba1c is 8.4 although pt thought he was prediabetic -Mild SSI for now -Metformin on discharge, f/u w/ PCP Hyperlipidemia -FLP normal -atorvastatin 40mg qhs HTN -amlodipine A-fib -on plavix, however will hold d/t low H/H -continue bystolic CODE: DNR DVT: SCDs Dispo: Pt to speak with Dr. Isidro today regarding follow up. If potassium stable this afternoon will DC later today with f/u. Addendum - Attending - Attending Attestation Date/Time: 06/09/19 4249 I personally evaluated the patient and discussed the management with Dr. Perez. I agree with the History, Examination, Assessment and Plan documented above with any addition or exceptions noted below. Patient in good spirits this morning. We had long conversation about future plans for treatment. He has almost certainly a colonic malignancy, nonobstructive. Will consult Surgery for their input and involvement. Path pending. Fortunately the CT scan did not show metastatic disease. GI on board. H /H stable. Potassium repletion as likely low 2/2 increased BM from bowel prep.
[2019-06-09 05:59] LABS: Hemoglobin 8.4 g/dL (14.0-18.0); Mean Corpuscular HGB CONC 30.3 g/dL (32.0-36.0); Mean Corpuscular Hemoglobin 21.8 pg (27.0-31.0); Mean Corpuscular Volume 71.8 fL (78.0-98.0); Mean Platelet Volume 9.9 fL (7.4-10.4); Platelet Count 276 thou/uL (130-400); RBC Distribution Width 19.1 % (11.5-14.5); Red Blood Cell (RBC) Count 3.87 mill/uL (4.70-6.10); White Blood Cell (WBC) Count 8.3 thou/uL (4.8-10.8)
[2019-06-09 06:21] LABS: Anion Gap 12 mmol/L (10-20); BUN (Urea Nitrogen) 9 mg/dL (8.4-25.7); Calc. Creatinine Clearance 113 mL/min (70-130); Calcium 8.9 mg/dL (7.8-10.44); Carbon Dioxide 25 mmol/L (23-31); Chloride 106 mmol/L (98-107); Estimated GFR-MDRD 75; Glucose 115 mg/dL (83-110); Sodium 140 mmol/L (136-145)
[2019-06-09 06:26] LABS: Potassium 2.9 mmol/L (3.5-5.1)
[2019-06-09] MEDS ORDERED: Potassium Chloride 20 MEQ in Sodium Chloride 0.9% 250 ML 250 ML IVPB SCH (07:15)
[2019-06-09] MEDS ORDERED: Potassium Chloride 20 MEQ TAB PO SCH (07:15)
[2019-06-09] MEDS ORDERED: metFORMIN 500 MG TAB PO SCH (08:00)
[2019-06-09] MEDS: Ferrous Sulfate 325 MG TAB PO SCH ×2 (08:14→11:50)
[2019-06-09] MEDS: Pantoprazole 40 MG VIAL IVP SCH (08:15)
[2019-06-09] MEDS: Amlodipine 10 MG TAB PO SCH (08:15)
[2019-06-09] MEDS: Potassium Chloride 20 MEQ TAB PO SCH (08:33)
[2019-06-09] MEDS: Nebivolol HCl 5 MG TAB PO SCH (09:51)
[2019-06-09 13:35] LABS: Anion Gap 15 mmol/L (10-20); BUN (Urea Nitrogen) 10 mg/dL (8.4-25.7); Calc. Creatinine Clearance 103 mL/min (70-130); Calcium 9.4 mg/dL (7.8-10.44); Carbon Dioxide 25 mmol/L (23-31); Chloride 105 mmol/L (98-107); Estimated GFR-MDRD 68; Glucose 128 mg/dL (83-110); Potassium 3.5 mmol/L (3.5-5.1); Sodium 141 mmol/L (136-145)
[2019-06-09 15:31] VITALS: BP 141/74; TEMP 98
--- NOTE | 2019-06-11 02:40 | DIS ---
DATE OF ADMISSION: 06/06/2019 DATE OF DISCHARGE: 06/09/2019 RESIDENT: Dom Perez MD. ADMITTING ATTENDING: Maya Malone MD. DISCHARGE ATTENDING: Alexis Welsh MD. CONSULTATIONS: 1. GI, Dr. Rolando Isidro. 2. Cardiology, Dr. Balwinder Ward. PROCEDURES: EGD and colonoscopy. Findings: EGD showed multiple small kowalski colored polyps in gastric fundus and body, biopsied. Duodenum with 2-3 mm superficial ulceration and duodenal bulb, biopsied. Colonoscopy 5 mm terminal ileum polyp, status post snare cautery polypectomy. Large nonobstructive 5 x 6 cm mass in ascending, proximal colon with biopsies and tattoo. Severe left-sided diverticulosis. Two 4 mm polyp removed via hot snare. Small to medium size internal hemorrhoids. PRIMARY DIAGNOSES: Likely colon adenocarcinoma, diabetes, hypokalemia, symptomatic anemia. SECONDARY DIAGNOSES: Hyperlipidemia, hypertension. DISCHARGE MEDICATIONS: 1. Bystolic 20 mg b.i.d. 2. Norvasc 10 mg daily. 3. Co Q10 400 mg daily. 4. Lipitor 40 mg daily. 5. Metformin 500 mg b.i.d. 6. Ferrous sulfate 325 mg t.i.d. DISCONTINUED MEDICATION: Plavix 75 mg daily. HISTORY OF PRESENT ILLNESS AND HOSPITAL COURSE: A 73-year-old male presented complaining of shortness of breath that is worse over the past 3-4 days and is exacerbated with exercise. The patient has past medical history significant for atrial fibrillation, which he sees Cardiology for. The patient sleeps with an elevated bed secondary to orthopnea and endorses swelling in the lower extremities. The patient stated knowledge of low blood counts in the past, but denied ever having a colonoscopy. Workup in the ED was significant for a hemoglobin of 7.7. The patient was subsequently transfused 2 units and admitted for further workup. GI was consulted and performed an EGD and colonoscopy with findings above. Cardiology was consulted prior to the procedure for cardiac clearance and approved of the patient undergoing anesthesia. Following blood product transfusion, patient's hemoglobin remained stable at 8.4 at the time of discharge. Red blood cell indices were suggestive of [id number]-gr-cdyzdyn blood loss with an elevated reticulocyte count. Following bowel prep prior to EGD and colonoscopy, the patient had problems with hypokalemia as low as 2.9, requiring replacement over the following next couple of days. Potassium levels were stable at 3.5 at time of discharge. CEA levels were drawn and found to be 1.75. Review of patient's previous A1c resulted at 8.4 five months ago, however, patient was told in the past that he was only borderline diabetic. The patient was started on sliding scale insulin and recommended to follow up with his PCP regarding these findings for initiation of anti-hyperglycemics and was discharged with metformin 500 mg b.i.d. Prior to discharge, Dr. Isidro arranged followup with Surgical Oncology. The patient was agreeable with the plan to follow up on his biopsy findings as well as his other chronic medical conditions. Return precautions were discussed and the patient expressed understanding. DISPOSITION: Stable. DISCHARGE INSTRUCTIONS: Location: Home. Diet: Carb conscious. Activity: As tolerated. Followup: Surgical Oncology as directed, Dr. Isidro as directed, PCP, [facility] within 7 days. Job ID: [id number] MTDD
--- NOTE | 2019-06-11 03:03 | DIS ---
DATE OF ADMISSION: 06/06/2019 DATE OF DISCHARGE: 06/09/2019 ADMITTING ATTENDING: Maya Malone MD DISCHARGE ATTENDING: Alexis Welsh MD RESIDENT: Elizabeth Underwood MD CONSULTS: Gastroenterology, Cardiology. PROCEDURES PERFORMED: 1. EGD and colonoscopy with biopsies. 2. Chest, abdomen, pelvis CT with contrast. 3. Transfusion of 2 units packed red blood cells. PRIMARY DIAGNOSIS: Symptomatic iron deficiency anemia secondary to chronic blood loss from adenocarcinoma of the colon. SECONDARY DIAGNOSES: 1. Hypokalemia. 2. Type 2 diabetes, newly diagnosed. 3. Hyperlipidemia. 4. Hypertension. 5. Atrial fibrillation, rate controlled. DISCHARGE MEDICATIONS: 1. Atorvastatin 40 mg p.o. nightly. 2. Ferrous sulfate 325 mg p.o. t.i.d. 3. Metformin 500 mg p.o. b.i.d. with meals. 4. Amlodipine 10 mg p.o. daily. 5. Nebivolol (Bystolic) 20 mg p.o. b.i.d. 6. CoQ10 of 400 mg p.o. daily. DISCONTINUED MEDICATIONS: Plavix. HISTORY OF PRESENT ILLNESS AND HOSPITAL COURSE: This active 73-year-old male with history of atrial fibrillation was admitted due to shortness of breath that had gotten worse over the past 3-4 days and worse with exertion. He felt like he could not take a full deep breath. 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 He has noticed swelling in his lower extremities bilaterally. The patient also has been taking four Advil at night, every night for sleep. He takes Zantac for some reflux type symptoms. The patient had never had a colonoscopy. On admission, the patient was noted to have a hemoglobin of 7.7, and received 1 unit of red blood cells in the emergency room. He did not have an elevated white count. His MCV was microcytic at 69.6. His platelets were normal at 352. Iron studies were ordered along with reticulocyte count, which was 3.1. His total iron was low at 23, TIBC was 466, which is high. Ferritin was normal at 41. These findings indicated iron deficiency anemia. The patient also had a potassium of 3.0 on admission, and this was replaced. Potassium decreased to as low as 2.7 and was continually replaced. In total, the patient received 2 units of packed red blood cells for his anemia. His hemoglobin improved to 8.7 and was above 8 on the day of discharge. As the patient had lost 40-50 pounds, GI was consulted for evaluation of malignancy. Cardiology was consulted prior to procedures for cardiac clearance for anesthesia. Colonoscopy revealed a colonic mass and other biopsies of polyps were taken. It was noted that mass was most likely malignant. Upper endoscopy was also performed and some biopsies were taken. Pathology is pending. A CT scan with contrast was performed of the chest, abdomen, and pelvis in order to assess for metastases. No metastases were noted, but a 5 x 5 x 4 colonic mass in the cecum involving the ileocecal valve was found. GI recommended following up outpatient with surgical oncologist as the patient was now stable regarding his hemoglobin and potassium. DISPOSITION: Stable. Overall prognosis: fair. DISCHARGE INSTRUCTIONS: 1. Location: Home. 2. Diet: Carbohydrate consistent. 3. Activity: As tolerated. 4. Followup: Follow up with surgical oncologist regarding resection of his colonic mass. Follow up with Gastroenterology and with PCP for evaluation of his anemia , hypokalemia, and Type 2 Diabetes. Job ID: [id number] [facility]
--- NOTE | 2019-06-11 22:56 | EKG ---
Test Reason : STAT Blood Pressure : / mmHG Vent. Rate : 083 BPM Atrial Rate : 078 BPM P-R Int : 000 ms QRS Dur : 104 ms QT Int : 440 ms P-R-T Axes : 000 074 016 degrees QTc Int : 517 ms Normal sinus rhythm with 1st degree A-V block Nonspecific ST abnormality Prolonged QT Abnormal ECG Confirmed by AARON HARRIS M.D. ([id number]) on 06/11/2019 10:55:56 PM Referred By: GIANCARLO ZUNIGA Confirmed By:AARON HARRIS M.D.
== END 2019-06-09 15:41 | disposition home or self-care (01) | DRG 348 ==
LOC: ERS 12:20 → OBSVTOIN 15:05 → 2SW 15:05 → T4-B 19:37 → 2NO 23:05 → T4-B 06-08 19:08
PROVIDERS: ADMIT Family Medicine; ATTEND Family Medicine
PROC: 30233N1 Transfusion of Nonautologous Red Blood Cells into Peripheral Vein, Percutaneous Approach (ICD-10-PCS; principal; 2019-06-06)
PROC: 0DBB8ZZ Excision of Ileum, Via Natural or Artificial Opening Endoscopic (ICD-10-PCS; 2019-06-08)
PROC: 0DB98ZX Excision of Duodenum, Via Natural or Artificial Opening Endoscopic, Diagnostic (ICD-10-PCS; 2019-06-08)
PROC: 0DB78ZX Excision of Stomach, Pylorus, Via Natural or Artificial Opening Endoscopic, Diagnostic (ICD-10-PCS; 2019-06-08)
PROC: 0DB68ZX Excision of Stomach, Via Natural or Artificial Opening Endoscopic, Diagnostic (ICD-10-PCS; 2019-06-08)
PROC: 0DBL8ZZ Excision of Transverse Colon, Via Natural or Artificial Opening Endoscopic (ICD-10-PCS; 2019-06-08)
PROC: 0DBM8ZZ Excision of Descending Colon, Via Natural or Artificial Opening Endoscopic (ICD-10-PCS; 2019-06-08)
PROC: 0DBK8ZX Excision of Ascending Colon, Via Natural or Artificial Opening Endoscopic, Diagnostic (ICD-10-PCS; 2019-06-08)
DX: C18.2 Malignant neoplasm of ascending colon (principal); K92.2 Gastrointestinal hemorrhage, unspecified; I48.20 Chronic atrial fibrillation, unspecified; Z66 Do not resuscitate; I48.0 Paroxysmal atrial fibrillation; E78.5 Hyperlipidemia, unspecified; I10 Essential (primary) hypertension; E11.9 Type 2 diabetes mellitus without complications; E87.6 Hypokalemia; R79.89 Other specified abnormal findings of blood chemistry; E66.9 Obesity, unspecified; K31.7 Polyp of stomach and duodenum; K26.9 Duodenal ulcer, unspecified as acute or chronic, without hemorrhage or perforation; K64.8 Other hemorrhoids; K63.5 Polyp of colon; K57.30 Diverticulosis of large intestine without perforation or abscess without bleeding; D63.0 Anemia in neoplastic disease; K21.9 Gastro-esophageal reflux disease without esophagitis; D50.0 Iron deficiency anemia secondary to blood loss (chronic); Z79.899 Other long term (current) drug therapy; Z79.02 Long term (current) use of antithrombotics/antiplatelets; Z79.84 Long term (current) use of oral hypoglycemic drugs; Z68.31 Body mass index [BMI] 31.0-31.9, adult
CPT/HCPCS: 36415; 36416; 36430; 71045; 71260; 74177; 80048; 80053; 80061; 82378; 82550; 82728; 83540; 83550; 83735; 83880; 84100; 84484; 85025; 85027; 85046; 86850; 86900; 86901; 88305; 88312; 93005; 93010; C9113; J1200; J3480; J7050; P9016

== ENCOUNTER 2019-06-26 07:36 | Inpatient (IN) | payer MEDICARE, BC ==
[2019-06-25 15:09] VITALS: BMI 30.2
[2019-06-26 08:33] LABS: Hemoglobin 11.3 g/dL (14.0-18.0); Mean Corpuscular HGB CONC 29.2 g/dL (32.0-36.0); Mean Corpuscular Volume 78.6 fL (78.0-98.0); Mean Platelet Volume 10.1 fL (7.4-10.4); Platelet Count 325 thou/uL (130-400); RBC Distribution Width 23.5 % (11.5-14.5); Red Blood Cell (RBC) Count 4.91 mill/uL (4.70-6.10); White Blood Cell (WBC) Count 10.1 thou/uL (4.8-10.8)
[2019-06-26 08:54] LABS: #Basophils 0.1 thou/uL (0.0-0.2); #Eosinphils 0.2 thou/uL (0.0-0.7); #Lymphocytes 1.9 thou/uL (1.20-3.40); #Monocytes 0.8 thou/uL (0.11-0.59); #Neutrophils 7.2 thou/uL (1.40-6.50); %Basophils 0.9 % (0.0-1.0); %Lymphocytes 18.5 % (21.0-51.0); %Monocytes 7.9 % (0.0-10.0); %Neutrophils 70.7 % (42.0-75.0); Anisocytosis SLIGHT = 6-15 cells (100X) (0-5/hpf); Hypochromia SLIGHT = 6-15 cells (100X) (0-5/hpf); MDiff Complete? YES; Platelet Morphology Comment Appears Adequate
[2019-06-26 09:18] LABS: Anion Gap 15 mmol/L (10-20); BUN (Urea Nitrogen) 12 mg/dL (8.4-25.7); Calc. Creatinine Clearance 90 mL/min (70-130); Calcium 9.6 mg/dL (7.8-10.44); Carbon Dioxide 28 mmol/L (23-31); Chloride 102 mmol/L (98-107); Estimated GFR-MDRD 59; Glucose 132 mg/dL (83-110); Sodium 142 mmol/L (136-145)
[2019-06-26] MEDS ORDERED: Midazolam HCl 2 mg/2 ml Vial ONE (09:47)
[2019-06-26] MEDS ORDERED: Fentanyl 100 MCG/2 ML VIAL ONE ×3 (09:47→15:12)
[2019-06-26] MEDS ORDERED: Lidocaine 1% (PF) 30 ML VIAL ONE (09:53)
[2019-06-26] MEDS ORDERED: Sodium Chloride 0.9% 100 ML ONE (10:02)
[2019-06-26] MEDS ORDERED: cefOXitin 2 GM VIAL ONE (10:02)
[2019-06-26] MEDS ORDERED: Lidocaine 1% w/Epinephrine 1:100K 20 ML VIAL ONE ×2 (11:35→12:30)
[2019-06-26] MEDS ORDERED: Bupivacaine HCl 0.25%/Epi 0.0005/PF 10 ML VIAL FS ONE (11:35)
[2019-06-26] MEDS ORDERED: Glycopyrrolate 0.2 MG/ML 5 ML SYRINGE ONE (12:23)
[2019-06-26] MEDS ORDERED: Rocuronium Bromide 10 MG/ML (10ML VIAL) ONE (12:23)
[2019-06-26] MEDS ORDERED: Bupivacaine HCl 0.5%/Epinephrine 1:200,000/PF 30 ml Vial ONE (12:23)
[2019-06-26] MEDS ORDERED: Ondansetron PF 4 MG/2 ML Vial ONE (12:23)
[2019-06-26] MEDS ORDERED: Lidocaine 1% PF 5 ML VIAL ONE (12:23)
[2019-06-26] MEDS ORDERED: PROPOFOL 200 MG/20 ML VIAL ONE (12:23)
[2019-06-26] MEDS ORDERED: Promethazine HCl 25 MG/ML VIAL IM PRN ×2 (14:27→16:39)
[2019-06-26] MEDS ORDERED: Ondansetron HCl/PF 4 MG/2 ML Vial IVP PRN (14:27)
[2019-06-26] MEDS ORDERED: Promethazine HCl 25 MG/ML VIAL SLOW IVP PRN (14:27)
[2019-06-26] MEDS ORDERED: Promethazine HCl 25 MG/ML VIAL ONE (15:14)
[2019-06-26] MEDS ORDERED: Ondansetron PF 4 MG/2 ML Vial IVP PRN (16:39)
[2019-06-26] MEDS ORDERED: hydrALAZINE 20 MG/ML VIAL SLOW IVP PRN (16:39)
[2019-06-26] MEDS ORDERED: Morphine 2 MG/ML SYRINGE SLOW IVP PRN (16:39)
[2019-06-26] MEDS: Acetaminophen 1,000 MG in Premix Bag 1 BAG IVPB SCH ×2 (17:11→23:47)
[2019-06-26] MEDS: Ketorolac Tromethamine 30 MG/ML VIAL IVP SCH ×2 (17:14→23:47)
[2019-06-26] MEDS: D5 1/2 NS w/20 mEq KCL 1,000 ML IV SCH (17:19)
[2019-06-26] MEDS: Famotidine 20 MG TAB PO SCH (19:56)
[2019-06-26] MEDS: Enoxaparin Sodium 40 MG/0.4 ML SYRINGE SC SCH (20:30)
[2019-06-26] MEDS: Famotidine/PF 20 mg/2ml Vial SLOW IVP SCH (20:30)
[2019-06-27] MEDS: Morphine 4 MG/ML VIAL SLOW IVP PRN ×3 (00:06→21:43)
[2019-06-27] MEDS: D5 1/2 NS w/20 mEq KCL 1,000 ML IV SCH ×4 (02:37→21:42)
[2019-06-27 04:29] LABS: #Lymphocytes 1.2 thou/uL (1.20-3.40); #Monocytes 0.6 thou/uL (0.11-0.59); #Neutrophils 6.4 thou/uL (1.40-6.50); %Basophils 0.5 % (0.0-1.0); %Eosinophils 0.5 % (0.0-10.0); %Lymphocytes 14.9 % (21.0-51.0); %Monocytes 7.3 % (0.0-10.0); %Neutrophils 76.8 % (42.0-75.0); Hemoglobin 10.1 g/dL (14.0-18.0); Mean Corpuscular Hemoglobin 23.7 pg (27.0-31.0); Mean Platelet Volume 10.3 fL (7.4-10.4); Platelet Count 225 thou/uL (130-400); RBC Distribution Width 23.1 % (11.5-14.5); Red Blood Cell (RBC) Count 4.24 mill/uL (4.70-6.10); White Blood Cell (WBC) Count 8.3 thou/uL (4.8-10.8)
[2019-06-27 04:45] LABS: Anion Gap 12 mmol/L (10-20); BUN (Urea Nitrogen) 10 mg/dL (8.4-25.7); Calc. Creatinine Clearance 110 mL/min (70-130); Calcium 8.6 mg/dL (7.8-10.44); Carbon Dioxide 27 mmol/L (23-31); Chloride 104 mmol/L (98-107); Estimated GFR-MDRD 75; Glucose 173 mg/dL (83-110); Sodium 140 mmol/L (136-145)
[2019-06-27] MEDS: Ketorolac Tromethamine 30 MG/ML VIAL IVP SCH ×3 (05:21→18:11)
[2019-06-27] MEDS: Acetaminophen 1,000 MG in Premix Bag 1 BAG IVPB SCH ×2 (05:22→11:43)
--- NOTE | 2019-06-27 07:30 | PDOC.GSPN ---
Surgery Progress Note: Subj - Subjective Narrative: Mr. Hurley is a 73 year old male who is POD 1 from a laparoscopic right hemicolectomy for a colonic mass. Overnight his BP was slightly elevated in the 160s/80s. He reports that his normal pressures at home are in the 140s systolic. He had moderate pain overnight and reports that his TAP block has worn off at this time. He is on clear liquid diet and tolerating it well without nausea or vomiting. He did not have any flatus or BM overnight. He has a mathias in place and had 800 mL urine output overnight. He is currently on D5 1/ 2 NS with 20 mEq KCl at 120 mL/hr. He ambulated last night without difficulty and is using his incentive spirometer. Surgery Progress Note: Obj - Vital signs Vital signs: Vital Signs - Most Recent Temp Pulse Resp BP Pulse Ox 98.2 F 72 16 158/69 H 92 L 06/27/19 05:29 06/27/19 05:29 06/27/19 05:29 06/27/19 05:29 06/27/19 05:29 - Physical Exam General: no distress, moderate pain Cardiovascular: regular rate and rhythm, no murmur Respiratory: clear to auscultation, normal respiratory effort Abdomen: soft, nondistended, positive bowel sounds, appropriately tender Wound: healing well. negative: erythma/edema Surgery Progress Note: Results - Labs Result Diagrams: 06/27/19 04:08 06/27/19 04:08 Lab results: Laboratory Results - last 24 hr Surgery Progress Note: A/P - Problem (1) S/P right hemicolectomy Current Visit: Yes Code(s): Z90.49 - ACQUIRED ABSENCE OF OTHER SPECIFIED PARTS OF DIGESTIVE TRACT Status: Acute Assessment and Plan: Mr. Hurley is a 73 year old male who is POD 1 from a laparoscopic right hemicolectomy. He is recovering well at this time. His labs this AM reveal a normal WBC. Hgb decreased slightly from 11.3 to 10.1. His potassium was 3.0 this morning, unchanged from his preoperative value despite being on D5 1/2 NS with 20 mEq KCl, we will continue to monitor this value and increase the KCl in his fluids to 40 mEq if necessary. We will continue to slowly advance his diet as tolerated and monitor for bowel activity with flatus and BMs. If he continues tolerating liquids we can decrease the rate of his fluids. We will restart his home Amlodipine and Nebivolol for his BP. We will continue IV Tylenol, Morphine, and Toradol as needed for pain management. Plan to d/c mathias catheter today. Patient to continue ambulating and using incentive spirometry. Will continue to monitor patient for postoperative complications.
[2019-06-27] MEDS ORDERED: Potassium Chloride 20 MEQ TAB PO SCH ×2 (08:30→13:00)
[2019-06-27] MEDS: Nebivolol HCl 5 MG TAB PO SCH ×2 (09:25→21:43)
[2019-06-27] MEDS: Amlodipine 10 MG TAB PO SCH (09:25)
[2019-06-27] MEDS: Famotidine 20 MG TAB PO SCH ×2 (09:28→21:43)
[2019-06-27] MEDS: Famotidine/PF 20 mg/2ml Vial SLOW IVP SCH ×2 (09:30→21:44)
[2019-06-27] MEDS ORDERED: HYDROcodone/Acetaminophen 7.5/325 mg Tablet PO PRN ×2 (12:11)
[2019-06-27] MEDS: Enoxaparin Sodium 40 MG/0.4 ML SYRINGE SC SCH (21:42)
[2019-06-28] MEDS: Morphine 4 MG/ML VIAL SLOW IVP PRN (00:12)
[2019-06-28] MEDS: Ketorolac Tromethamine 30 MG/ML VIAL IVP SCH ×2 (00:13→05:36)
[2019-06-28 05:14] LABS: #Eosinphils 0.4 thou/uL (0.0-0.7); #Lymphocytes 1.4 thou/uL (1.20-3.40); #Monocytes 0.6 thou/uL (0.11-0.59); #Neutrophils 6.2 thou/uL (1.40-6.50); %Basophils 0.4 % (0.0-1.0); %Lymphocytes 16.1 % (21.0-51.0); %Monocytes 6.8 % (0.0-10.0); %Neutrophils 71.7 % (42.0-75.0); Anisocytosis SLIGHT = 6-15 cells (100X) (0-5/hpf); Hemoglobin 9.5 g/dL (14.0-18.0); Hypochromia SLIGHT = 6-15 cells (100X) (0-5/hpf); MDiff Complete? YES; Mean Corpuscular HGB CONC 30.3 g/dL (32.0-36.0); Mean Corpuscular Hemoglobin 24.2 pg (27.0-31.0); Mean Platelet Volume 10.5 fL (7.4-10.4); Platelet Count 219 thou/uL (130-400); Platelet Morphology Comment Appears Adequate; Red Blood Cell (RBC) Count 3.92 mill/uL (4.70-6.10); White Blood Cell (WBC) Count 8.6 thou/uL (4.8-10.8)
[2019-06-28 05:17] LABS: Anion Gap 11 mmol/L (10-20); BUN (Urea Nitrogen) 9 mg/dL (8.4-25.7); Calc. Creatinine Clearance 107 mL/min (70-130); Calcium 8.6 mg/dL (7.8-10.44); Carbon Dioxide 25 mmol/L (23-31); Chloride 102 mmol/L (98-107); Estimated GFR-MDRD 72; Glucose 124 mg/dL (83-110); Potassium 3.3 mmol/L (3.5-5.1); Sodium 135 mmol/L (136-145)
--- NOTE | 2019-06-28 07:03 | PDOC.GSPN ---
Surgery Progress Note: Subj - Subjective Narrative: Mr. Hurley is a 73 y/o male POD#2 from a laparoscopic right hemicolectomy for a colonic mass. He slept well overnight and his pain has subsided. He rates the pain at a 2/10 and is described as dull, diffuse pain in the abdomen without radiation. He denies any drainage or bleeding from his abdominal incisions. He is tolerating his full liquid diet well and has not had any vomiting. He had some nausea briefly yesterday, but it attributes it to the pain medication. He has not had a bowel movement yet. He was able to urinate twice yesterday without difficulty or gross hematuria. Quick catheter was removed yesterday. He is on IVF D5 1/2 NS w/ 20 mEq KCL at a rate of 70 mls/hr. He mentions he has a chronic pedal edema at night (which he had again last night ), but it resolves upon getting up and walking. He has been ambulating and using incentive spirometry. Surgery Progress Note: Obj - Vital signs Vital signs: Vital Signs - Most Recent Temp Pulse Resp BP Pulse Ox 98.5 F 74 16 138/78 95 06/28/19 04:10 06/28/19 04:10 06/28/19 04:10 06/28/19 04:10 06/28/19 04:10 - Physical Exam General: no distress ENT: no congestion, other (Oral mucosa mildly dry.) Neck: other (Supple neck, no lymphadenopathy.) Cardiovascular: regular rate and rhythm, no murmur Respiratory: clear to auscultation Abdomen: soft, non tender, nondistended, positive bowel sounds Hernia: umbilical (reduceable, defect approximately 1.5 cm.) Wound: healing well Surgery Progress Note: Results - Labs Result Diagrams: 06/28/19 04:22 06/28/19 04:22 Lab results: Laboratory Results - last 24 hr 06/28/19 06/28/19 04:22 04:22 WBC 8.6 RBC 3.92 L Hgb 9.5 L Hct 31.3 L MCV 80.0 MCH 24.2 L MCHC 30.3 L RDW 23.0 H Plt Count 219 MPV 10.5 H Neutrophils % 71.7 Neutrophils % (Manual) Not Reportable Lymphocytes % 16.1 L Monocytes % 6.8 Eosinophils % 5.0 Basophils % 0.4 Neutrophils # 6.2 Lymphocytes # 1.4 Monocytes # 0.6 H Eosinophils # 0.4 Basophils # 0.0 Hypochromia SLIGHT = 6-15 cells Plt Morphology Comment Appears Adequate Anisocytosis SLIGHT = 6-15 cells Sodium 135 L Potassium 3.3 L Chloride 102 Carbon Dioxide 25 Anion Gap 11 BUN 9 Creatinine 1.01 Estimated GFR (MDRD) 72 Glucose 124 H Calcium 8.6 Surgery Progress Note: A/P - Plan Plan: Mr. Hurley is a 73 y/o male POD#2 from a laparoscopic right hemicolectomy for a colonic mass and continues to recover well. His BP has come down to wnl this AM. He should continue to receive his home meds for HTN ( Amlodipine and Nebivolol). His potassium has improved from 3.0 to 3.3 after he was given potassium p.o. yesterday. Plan is to continue monitoring for improvement as we advance his diet to regular diet, which can be done today. His hemoglobin decreased to 9.5 today (preoperatively 11.3). He denied hematuria , hematochezia, or any sources of bleeding and this decrease is likely post operative/dilutional because he has been on fluids and also tolerating p.o. diet. IV fluids can also be discontinued today. He has been encouraged to continue ambulating and using incentive spirometry. Though he has not had a BM, he has normoactive bowel sounds today and as long as he tolerates his regular diet today, we can plan for discharge today. Will discuss with Dr. Li.
[2019-06-28] MEDS: Amlodipine 10 MG TAB PO SCH (08:50)
[2019-06-28] MEDS: Famotidine 20 MG TAB PO SCH (08:50)
[2019-06-28] MEDS: Nebivolol HCl 5 MG TAB PO SCH (08:50)
[2019-06-28] MEDS: Famotidine/PF 20 mg/2ml Vial SLOW IVP SCH (08:51)
--- NOTE | 2019-06-28 12:29 | DIS ---
DATE OF ADMISSION: 06/26/2019 DATE OF DISCHARGE: 06/28/2019 ADMISSION DIAGNOSES: Right colon mass with blood loss anemia. DISCHARGE DIAGNOSES: Right colon mass with blood loss anemia. PROCEDURE PERFORMED: Hand assisted laparoscopic right hemicolectomy. SURGEON: Terry Li MD ADMISSION HISTORY: The patient is a 73-year-old white male, who presented with severe anemia couple of weeks previously. Colonoscopy revealed a large mass in the proximal right colon. Biopsies revealed tubulovillous adenoma. He was taken to the operating room for laparoscopic right hemicolectomy. HOSPITAL COURSE: He underwent uneventful surgery on the day of admission. He had a mild anemia prior to his surgery and hemoglobin remained relatively stable in the 2 days after surgery. He had no substantial ileus. He tolerated clear liquids on the day of surgery and was advanced to a soft diet prior to discharge. He voided uneventfully. He has passed flatus, but has not had a bowel movement. He is ambulating well. He denies significant discomfort. He has been entirely hemodynamically stable. He is discharged home at this time. He will follow up with myself in about 2 weeks. He is given a discharge prescription of tramadol. He is instructed to resume his preop antihypertensive medications and his Eliquis. Job ID: [id number]
[2019-06-28] MEDS ORDERED: traMADol HCl 50 MG TAB PO SCH (12:30)
[2019-06-28 12:32] VITALS: BP 141/75; TEMP 98.9
--- NOTE | 2019-06-28 21:02 | OP ---
DATE OF PROCEDURE: 06/26/2019 PREOPERATIVE DIAGNOSIS: Right colon mass/possible cancer. POSTOPERATIVE DIAGNOSIS: Right colon mass/possible cancer with finding of a right-sided anterior abdominal wall nodular mass. PROCEDURES PERFORMED: Laparoscopic hand-assisted right hemicolectomy, excision of right-sided abdominal wall mass. ANESTHESIA: General endotracheal. INDICATIONS: The patient is a 73-year-old white male. He had recently presented with severe anemia. Endoscopy revealed a large fungating mass within the proximal right colon. He was taken to the operating room at this time for planned right hemicolectomy. DESCRIPTION OF PROCEDURE: Informed consent was obtained. The patient was taken to the operating room, where general anesthesia was obtained with the patient in supine position. Abdomen was prepped with ChloraPrep and draped in sterile fashion. Local anesthetic was infiltrated and 5 mm left upper abdominal incision was created, through which a Veress needle was passed in the peritoneal cavity. Pneumoperitoneum was established using carbon dioxide up to pressure of 15 mmHg. A 5 mm trocar port site was established using same incision. Laparoscopic camera was passed within the abdomen. Under direct vision, a second 5 mm left lower quadrant port was placed. The cecum was identified and the tattoo on this was also identified. I selected a site for the extraction port in the right upper quadrant. An oblique 8 cm incision was created and dissection was carried through skin and subcutaneous tissue. Fascia was incised and muscle-splitting technique was used to gain access into the abdominal cavity. The Norm wound retractor was placed followed by the GelPort. With left hand intraabdominal assistance, the operation was continued. Of note, there was a hard nodular mass measuring approximately 2.5 cm on the anterior abdominal wall. This was not affixed to anything else. There had been no prior surgery at this side, so I was uncertain exactly what this was. The mass was excised along with the posterior abdominal wall in this location using LigaSure and obtaining hemostasis and passed off as a separate specimen. Attention was then turned to the right lower quadrant. There were adhesions between the terminal ileum and the lateral abdominal wall. These were carefully taken down using LigaSure dissection. The distal small bowel was fully mobilized to allow mobilization into the upper abdomen. The white line of Toldt was incised and the right colon was mobilized in a lateral to medial fashion up to the hepatic flexure. I then turned my attention to the mesentery. The ileocolic pedicle was identified. Just inferior to this, the mesentery was incised and a retroperitoneal blunt dissection was carried laterally to the area that had been opened along the ligament of Treitz. The ileocolic vessels were then dissected and divided using LigaSure with complete hemostasis. The mesentery was then dissected superiorly up toward the proximal transverse colon. I then mobilized the transverse colon by taking down first the hepatic flexure and incising the peritoneum at the hepatocolic ligament. The omentum of the proximal transverse colon was dissected off the transverse colon to approximately the mid transverse colon. At this point, the colon was withdrawn through the Norm wound retractor. The distal small bowel was mobilized through this as well as the proximal transverse colon. Segregated instruments were utilized as well as towels around the wound retractor. The site was selected for anastomosis in the distal ileum and the proximal transverse colon. A double stapled technique was utilized to anastomose and divide the colon using the MARYSE 75 stapler. The specimen was then passed off the field. As soon as the specimen was passed off the field, the instruments were passed off as well as the towels and gloves were changed. The staple line to the anastomosis was then buttressed with several interrupted sutures of 3-0 silk. The mesenteric defect was not closed. The bowel was then dropped back down to the abdominal cavity. The abdomen was then laparoscopically explored one final time. I ensured that the bowel laid appropriately. There was no bowel protruding to the mesenteric defect. Hemostasis was meticulous. The right side of the abdomen was irrigated and all irrigant was aspirated. The excision site in the right abdomen was inspected and hemostatic as well. All ports and instruments were removed under direct vision. Pneumoperitoneum was evacuated. The Norm wound retractor was removed. The laparoscopic equipment was passed off the field and the abdominal wall was cleansed with saline. The closing tray was utilized. Gowns and gloves were changed. The fascia at the right-sided extraction site was closed in 2 layers using running suture of #1 PDS. Additional local anesthetic was infiltrated during closure. The remainder of the wound was closed in layers with 3-0 and 4-0 Monocryl. The laparoscopic incisions were closed with 4-0 Monocryl. Dermabond was placed externally. There were no complications. The patient tolerated the procedure well. A tap block had been placed by Anesthesia preoperatively. The patient's temperature had been maintained at 36 degrees throughout the operation. Job ID: [id number]
--- NOTE | 2019-06-29 04:19 | PQF ---
LUIS ALBERTO MAO II, MICHAEL W MD [id number] [facility] 3317 [id number] CLINICAL DOCUMENTATION CLARIFICATION FORM: POST DISCHARGE Addendum to original discharge summary date: ____ Late entry note date: __ DATE: 06/29/19 ATTN: Terry Rai Please exercise your independent, professional judgment in responding to the clarification form. Clinical indicators are provided on the bottom of this form for your review Can you please further specify the specificity of Anemia? Please check appropriate box(s): [ ] Acute blood loss anemia [ ] Post-op anemia related to acute blood loss [ x ] Other diagnosis please specify__--Anemia present on admission secondary to GI blood loss from colon mass/ cancer [ ] Unable to determine In addition, please specify: Present on Admission (POA): [ x] Yes [ ] No [ ] Unable to determine For continuity of documentation, please document condition throughout progress notes and discharge summary. Thank You. CLINICAL INDICATORS - SIGNS / SYMPTOMS / LABS Ds pg.1- Right colon mass with blood loss anemia DS pg.1- he had anemia prior to his surgery and hemoglobin remained relatively stable in the 2 days after surgery General Surgery PN 11pg.1- Hgb decreased slightly from 11.3 to 10.1 Op report pg.1- recently presented with severe anemia RISK [employer]CTORS 73 yo male-General Surgery PN 06/28pg.1 POD #2 from a laparoscopic right hemicolectomy -General Surgery PN 06/28pg.1 Colonic mass- General Surgery PN 06/27pg.1 TREATMENTS: H and H monitoring-[id number] IV Fluids- OCT 30 (This form is maintained as a part of the permanent medical record) 2014 [employer]. All Rights Reserved [email or web address] [not provided] [email or web address]
== END 2019-06-28 13:25 | disposition home or self-care (01) | DRG 331 ==
LOC: SURG A 07:36 → SJJU 15:50
PROVIDERS: ADMIT Specialist; ATTEND Specialist
PROC: 0DBF0ZZ Excision of Right Large Intestine, Open Approach (ICD-10-PCS; principal; 2019-06-26)
PROC: 0WBF0ZZ Excision of Abdominal Wall, Open Approach (ICD-10-PCS; 2019-06-26)
DX: D12.2 Benign neoplasm of ascending colon (principal); I10 Essential (primary) hypertension; E78.5 Hyperlipidemia, unspecified; I48.91 Unspecified atrial fibrillation; M10.9 Gout, unspecified; K66.8 Other specified disorders of peritoneum; Z79.899 Other long term (current) drug therapy; D63.0 Anemia in neoplastic disease
CPT/HCPCS: 36415; 36416; 80048; 85025; 88305; 88309; J0131; J0670; J0694; J1650; J1885; J2001; J2250; J2270; J2405; J2550; J2704; J3010; J3490; S0028

== ENCOUNTER 2022-10-27 05:44 | Day surgery (SDC) | payer MEDICARE, BC ==
[2022-10-25 14:21] VITALS: BMI 32.7
[2022-10-27] MEDS ORDERED: PROPOFOL 200 MG/20 ML VIAL ONE (08:18)
[2022-10-27] MEDS ORDERED: Lidocaine 1% PF 5 ML VIAL ONE (08:18)
[2022-10-27 10:59] LABS: #Eosinphils 0.1 thou/uL (0.0-0.7); #Monocytes 0.4 thou/uL (0.11-0.59); #Neutrophils 4.5 thou/uL (1.40-6.50); %Basophils 0.7 % (0.0-1.0); %Eosinophils 1.2 % (0.0-10.0); %Lymphocytes 28.5 % (21.0-51.0); %Monocytes 5.7 % (0.0-10.0); %Neutrophils 64.1 % (42.0-75.0); Hemoglobin 14.7 g/dL (14.0-18.0); Iron 72 ug/dL (65-175); Iron Binding Capacity, Total 346 mcg/dL (261-462); Mean Corpuscular Hemoglobin 31.7 pg (27.0-31.0); Mean Corpuscular Volume 90.5 fl (78.0-98.0); Mean Platelet Volume 8.1 fL (7.4-10.4); Platelet Count 175 10x3/uL (130-400); RBC Distribution Width 12.7 % (11.5-14.5); Red Blood Cell (RBC) Count 4.63 mill/uL (4.70-6.10)
== END 2022-10-27 12:20 | disposition home or self-care (01) ==
LOC: SDC 05:44
PROVIDERS: ATTEND Internal Medicine Gastroenterology
PROC: 0DB78ZX Excision of Stomach, Pylorus, Via Natural or Artificial Opening Endoscopic, Diagnostic (ICD-10-PCS; principal; 2022-10-27)
PROC: 0DBP8ZX Excision of Rectum, Via Natural or Artificial Opening Endoscopic, Diagnostic (ICD-10-PCS; 2022-10-27)
PROC: 0DBE8ZX Excision of Large Intestine, Via Natural or Artificial Opening Endoscopic, Diagnostic (ICD-10-PCS; 2022-10-27)
PROC: 0DBL8ZX Excision of Transverse Colon, Via Natural or Artificial Opening Endoscopic, Diagnostic (ICD-10-PCS; 2022-10-27)
DX: D13.1 Benign neoplasm of stomach (principal); D12.3 Benign neoplasm of transverse colon; D12.6 Benign neoplasm of colon, unspecified; D12.8 Benign neoplasm of rectum; K51.40 Inflammatory polyps of colon without complications; K31.9 Disease of stomach and duodenum, unspecified; K57.30 Diverticulosis of large intestine without perforation or abscess without bleeding; K29.70 Gastritis, unspecified, without bleeding; D50.9 Iron deficiency anemia, unspecified; I48.20 Chronic atrial fibrillation, unspecified; E11.9 Type 2 diabetes mellitus without complications; E78.5 Hyperlipidemia, unspecified; I10 Essential (primary) hypertension; Z85.038 Personal history of other malignant neoplasm of large intestine; Z86.010 Personal history of colon polyps; Z79.01 Long term (current) use of anticoagulants; Z79.84 Long term (current) use of oral hypoglycemic drugs; Z79.899 Other long term (current) drug therapy; Z90.49 Acquired absence of other specified parts of digestive tract
CPT/HCPCS: 36415; 74177; 82728; 83540; 83550; 85025; 88305

== ENCOUNTER 2022-12-24 11:00 | Outpatient (CLI) | payer MEDICARE, BC | END 2022-12-24 11:01 | disposition home or self-care (01) | LOC: PET 11:00 | PROVIDERS: ATTEND Internal Medicine Gastroenterology | DX: R97.0 Elevated carcinoembryonic antigen [CEA] (principal); Z85.038 Personal history of other malignant neoplasm of large intestine | CPT/HCPCS: 78815; A9552 ==

== ENCOUNTER 2023-03-04 05:38 | Day surgery (SDC) | payer MEDICARE, BC ==
[2023-03-03 13:09] VITALS: BMI 29.6
[2023-03-04] MEDS ORDERED: fentaNYL 50 mcg/mL 1 mL Vial ONE (07:29)
[2023-03-04] MEDS ORDERED: PROPOFOL 200 MG/20 ML VIAL ONE (08:00)
[2023-03-04] MEDS ORDERED: Lidocaine 1% PF 5 ML VIAL ONE (08:00)
== END 2023-03-04 09:50 | disposition home or self-care (01) ==
LOC: SDC 05:38
PROVIDERS: ATTEND Internal Medicine Gastroenterology
PROC: 0DB68ZZ Excision of Stomach, Via Natural or Artificial Opening Endoscopic (ICD-10-PCS; principal; 2023-03-04)
PROC: 0DBK8ZZ Excision of Ascending Colon, Via Natural or Artificial Opening Endoscopic (ICD-10-PCS; 2023-03-04)
PROC: 0DBM8ZZ Excision of Descending Colon, Via Natural or Artificial Opening Endoscopic (ICD-10-PCS; 2023-03-04)
PROC: 0DBH8ZZ Excision of Cecum, Via Natural or Artificial Opening Endoscopic (ICD-10-PCS; 2023-03-04)
DX: D12.2 Benign neoplasm of ascending colon (principal); D12.4 Benign neoplasm of descending colon; K57.30 Diverticulosis of large intestine without perforation or abscess without bleeding; K63.5 Polyp of colon; K31.7 Polyp of stomach and duodenum; R97.0 Elevated carcinoembryonic antigen [CEA]; I48.20 Chronic atrial fibrillation, unspecified; E11.9 Type 2 diabetes mellitus without complications; E78.5 Hyperlipidemia, unspecified; D50.0 Iron deficiency anemia secondary to blood loss (chronic); R35.1 Nocturia; M54.41 Lumbago with sciatica, right side; Z79.01 Long term (current) use of anticoagulants; Z80.0 Family history of malignant neoplasm of digestive organs; Z79.84 Long term (current) use of oral hypoglycemic drugs; Z79.899 Other long term (current) drug therapy; Z98.0 Intestinal bypass and anastomosis status
CPT/HCPCS: 43239; 45385; 82378; 82962; J3010; 36416; 88305; J2704

== ENCOUNTER 2023-03-07 20:00 | Inpatient (IN) | payer MEDICARE, BC ==
[2023-03-07] MEDS ORDERED: Sodium Chloride 0.9% 100 ML ONE (20:38)
[2023-03-07] MEDS ORDERED: Piperacillin/Tazobactam 3.375 GM VIAL ONE ×3 (20:38→20:41)
[2023-03-07 20:47] LABS: #Monocytes 0.7 thou/uL (0.11-0.59); #Neutrophils 5.6 thou/uL (1.40-6.50); %Basophils 0.6 % (0.0-1.0); %Eosinophils 0.4 % (0.0-10.0); %Lymphocytes 6.4 % (21.0-51.0); %Monocytes 10.2 % (0.0-10.0); %Neutrophils 82.1 % (42.0-75.0); Mean Corpuscular HGB CONC 35.9 g/dL (32.0-36.0); Mean Corpuscular Hemoglobin 30.9 pg (27.0-31.0); Mean Corpuscular Volume 86.1 fl (78.0-98.0); Mean Platelet Volume 10.5 fL (7.4-10.4); Platelet Count 169 10x3/uL (130-400); RBC Distribution Width 13.7 % (11.5-14.5); Red Blood Cell (RBC) Count 4.53 mill/uL (4.70-6.10); White Blood Cell (WBC) Count 6.9 10x3/uL (4.8-10.8)
[2023-03-07 21:14] LABS: ALT (SGPT) 33 U/L (8-55); AST (SGOT) 31 U/L (5-34); Albumin 4.5 g/dL (3.4-4.8); Alkaline Phosphatase 42 U/L (40-110); Anion Gap 19 mmol/L (10-20); BUN (Urea Nitrogen) 15 mg/dL (8.4-25.7); Bilirubin, Total 1.3 mg/dL (0.2-1.2); Calc. Creatinine Clearance 0 mL/min (70-130); Calcium 9.3 mg/dL (7.8-10.44); Carbon Dioxide 26 mmol/L (23-31); Chloride 96 mmol/L (98-107); Estimated GFR 63; Globulin 2.9 g/dL (2.4-3.5); Glucose 195 mg/dL (83-110); Lipase 23 U/L (8-78); Magnesium 1.1 mg/dL (1.6-2.6); Protein, Total 7.4 g/dL (5.8-8.1); Sodium 139 mmol/L (136-145)
[2023-03-07 21:21] LABS: Potassium 2.4 mmol/L (3.5-5.1)
[2023-03-07] MEDS ORDERED: Potassium Chloride 20 MEQ TAB ONE (21:31)
[2023-03-07] MEDS ORDERED: Magnesium 2 GM/50 ML BAG (IN WATER) ONE (21:31)
[2023-03-07 22:42] LABS: Bacteria/HPF None Seen HPF (None Seen); Bilirubin Negative (Negative); Blood, Urine Negative (Negative); CAUTI Indications for Culture Fever or rigors; Clarity Turbid (Clear); Glucose, Urine (Dipstick) 100 mg/dL (Negative); Ketone, Urine Negative (Negative); Leukocyte Negative Leu/uL (Negative); Nitrite Negative (Negative); Protein, Urine (Dipstick) 100 mg/dL (Neg-Trace); RBC/HPF 0-3 HPF (0-3); Specific Gravity, Urine 1.027 (1.002-1.036); Squamous Epithelial 0-3 HPF (0-3); Urobilinogen Normal mg/dL (Less than 2); WBC/HPF 0-3 HPF (0-3); pH, Urine 5.5 (5.0-9.0)
[2023-03-07 22:43] LABS: Urine Culture Reflex No No
[2023-03-07] MEDS ORDERED: Ibuprofen 800 MG TAB ONE (23:11)
[2023-03-07 23:50] LABS: Lactic Acid 1.5 mmol/L (0.5-2.2)
[2023-03-08] MEDS ORDERED: Ondansetron ODT 4 MG TAB PO PRN (00:12)
[2023-03-08] MEDS ORDERED: Ondansetron PF 4 MG/2 ML Vial IVP PRN (00:12)
[2023-03-08] MEDS ORDERED: Acetaminophen 650 MG Suppository PR PRN (00:12)
[2023-03-08] MEDS ORDERED: HumaLOG 300 UNITS/3 ML VIAL SC PRN ×2 (00:17)
[2023-03-08] MEDS ORDERED: Glucagon 1 MG/ML KIT IM PRN (00:17)
[2023-03-08] MEDS ORDERED: Dextrose 5% in Water 1,000 ML IV PRN (00:17)
[2023-03-08] MEDS ORDERED: Dextrose 50% Abboject 50 ML SYRINGE SLOW IVP PRN (00:17)
[2023-03-08 01:42] LABS: Lactic Acid 1.5 mmol/L (0.5-2.2)
[2023-03-08 02:46] VITALS: BMI 30.2
[2023-03-08] MEDS: Piperacillin/Tazobactam 3.375 GM in Sodium Chloride 0.9% 100 ML IVPB SCH ×3 (04:18→18:25)
[2023-03-08] MEDS: Sodium Chloride 0.9% 1,000 ML IV SCH ×2 (04:18→11:39)
[2023-03-08] MEDS: Acetaminophen 325 MG TAB PO PRN ×2 (05:50→18:27)
[2023-03-08] MEDS ORDERED: Electrolyte Replacement Protocol 1 EACH FS SCH (06:45)
[2023-03-08 07:33] LABS: Anion Gap 20 mmol/L (10-20); BUN (Urea Nitrogen) 12 mg/dL (8.4-25.7); Calc. Creatinine Clearance 119 mL/min (70-130); Calcium 8.4 mg/dL (7.8-10.44); Carbon Dioxide 18 mmol/L (23-31); Chloride 102 mmol/L (98-107); Estimated GFR 90; Glucose 132 mg/dL (83-110); Magnesium 1.4 mg/dL (1.6-2.6); Potassium 2.7 mmol/L (3.5-5.1); Sodium 137 mmol/L (136-145)
[2023-03-08] MEDS: Potassium Chloride 20 MEQ TAB PO SCH ×2 (08:12→11:42)
[2023-03-08] MEDS ORDERED: Magnesium Sulfate In Water 4 GM in Premix Bag 1 BAG IVPB SCH (09:00)
[2023-03-08 10:35] LABS: #Monocytes 0.7 thou/uL (0.11-0.59); #Neutrophils 3.1 thou/uL (1.40-6.50); %Basophils 0.2 % (0.0-1.0); %Eosinophils 0.2 % (0.0-10.0); %Monocytes 13.7 % (0.0-10.0); %Neutrophils 65.3 % (42.0-75.0); Hemoglobin 12.6 g/dL (14.0-18.0); Mean Corpuscular HGB CONC 35.3 g/dL (32.0-36.0); Mean Corpuscular Hemoglobin 30.9 pg (27.0-31.0); Mean Corpuscular Volume 87.5 fl (78.0-98.0); Mean Platelet Volume 10.1 fL (7.4-10.4); Platelet Count 138 10x3/uL (130-400); RBC Distribution Width 14.1 % (11.5-14.5); Red Blood Cell (RBC) Count 4.08 mill/uL (4.70-6.10); White Blood Cell (WBC) Count 4.7 10x3/uL (4.8-10.8)
[2023-03-09] MEDS: Piperacillin/Tazobactam 3.375 GM in Sodium Chloride 0.9% 100 ML IVPB SCH ×3 (01:30→17:20)
[2023-03-09] MEDS: cloNIDine 0.2 MG TAB PO PRN (01:56)
[2023-03-09 06:33] LABS: #Monocytes 0.4 thou/uL (0.11-0.59); #Neutrophils 2.5 thou/uL (1.40-6.50); %Basophils 0.5 % (0.0-1.0); %Lymphocytes 31.5 % (21.0-51.0); %Monocytes 9.3 % (0.0-10.0); %Neutrophils 58.5 % (42.0-75.0); Hemoglobin 13.1 g/dL (14.0-18.0); Mean Corpuscular HGB CONC 35.5 g/dL (32.0-36.0); Mean Corpuscular Hemoglobin 30.7 pg (27.0-31.0); Mean Corpuscular Volume 86.4 fl (78.0-98.0); Mean Platelet Volume 10.6 fL (7.4-10.4); Platelet Count 129 10x3/uL (130-400); RBC Distribution Width 13.8 % (11.5-14.5); Red Blood Cell (RBC) Count 4.27 mill/uL (4.70-6.10); White Blood Cell (WBC) Count 4.3 10x3/uL (4.8-10.8)
[2023-03-09 06:57] LABS: Anion Gap 13 mmol/L (10-20); BUN (Urea Nitrogen) 9 mg/dL (8.4-25.7); Calc. Creatinine Clearance 108 mL/min (70-130); Calcium 8.3 mg/dL (7.8-10.44); Carbon Dioxide 30 mmol/L (23-31); Chloride 98 mmol/L (98-107); Estimated GFR 83; Glucose 186 mg/dL (83-110); Sodium 139 mmol/L (136-145)
[2023-03-09 07:01] LABS: Potassium 2.2 mmol/L (3.5-5.1)
[2023-03-09] MEDS: Acetaminophen 325 MG TAB PO PRN (07:50)
[2023-03-09] MEDS: Potassium Chloride 20 MEQ in Premix Bag 1 BAG IVPB SCH ×4 (07:50→14:37)
[2023-03-09] MEDS: Lisinopril 20 MG TAB PO SCH (07:51)
[2023-03-09] MEDS: Amlodipine 10 MG TAB PO SCH (07:51)
[2023-03-09] MEDS: Nebivolol HCl 5 MG TAB PO SCH (07:51)
[2023-03-09] MEDS: Apixaban 5 MG TAB PO SCH (07:52)
[2023-03-09] MEDS: Atorvastatin Calcium 20 MG TAB PO SCH (07:52)
[2023-03-09] MEDS ORDERED: Magnesium 2 GM/50 ML(in water) 2 GM in Premix Bag 1 BAG IVPB SCH (10:15)
[2023-03-09 18:08] LABS: Anion Gap 15 mmol/L (10-20); BUN (Urea Nitrogen) 16 mg/dL (8.4-25.7); Calc. Creatinine Clearance 81 mL/min (70-130); Calcium 9.1 mg/dL (7.8-10.44); Carbon Dioxide 28 mmol/L (23-31); Chloride 99 mmol/L (98-107); Estimated GFR 59; Glucose 175 mg/dL (83-110); Potassium 2.8 mmol/L (3.5-5.1); Sodium 139 mmol/L (136-145)
[2023-03-10] MEDS: Piperacillin/Tazobactam 3.375 GM in Sodium Chloride 0.9% 100 ML IVPB SCH ×3 (01:38→17:37)
[2023-03-10 06:23] LABS: #Eosinphils 0.1 thou/uL (0.0-0.7); #Monocytes 0.2 thou/uL (0.11-0.59); #Neutrophils 1.9 thou/uL (1.40-6.50); %Basophils 0.8 % (0.0-1.0); %Eosinophils 1.3 % (0.0-10.0); %Lymphocytes 44.5 % (21.0-51.0); %Monocytes 5.6 % (0.0-10.0); %Neutrophils 47.5 % (42.0-75.0); Hemoglobin 13.6 g/dL (14.0-18.0); Mean Corpuscular HGB CONC 34.8 g/dL (32.0-36.0); Mean Corpuscular Hemoglobin 30.6 pg (27.0-31.0); Mean Corpuscular Volume 88.1 fl (78.0-98.0); Mean Platelet Volume 10.8 fL (7.4-10.4); Platelet Count 137 10x3/uL (130-400); RBC Distribution Width 13.6 % (11.5-14.5); Red Blood Cell (RBC) Count 4.44 mill/uL (4.70-6.10); White Blood Cell (WBC) Count 3.9 10x3/uL (4.8-10.8)
[2023-03-10 06:45] LABS: Anion Gap 15 mmol/L (10-20); BUN (Urea Nitrogen) 14 mg/dL (8.4-25.7); Calc. Creatinine Clearance 105 mL/min (70-130); Calcium 8.8 mg/dL (7.8-10.44); Carbon Dioxide 29 mmol/L (23-31); Chloride 99 mmol/L (98-107); Estimated GFR 81; Glucose 167 mg/dL (83-110); Sodium 140 mmol/L (136-145)
[2023-03-10 06:58] LABS: Potassium 2.6 mmol/L (3.5-5.1)
[2023-03-10] MEDS: Potassium Chloride 20 MEQ TAB PO SCH ×4 (07:55→20:52)
[2023-03-10] MEDS: Apixaban 5 MG TAB PO SCH (08:01)
[2023-03-10] MEDS: Atorvastatin Calcium 20 MG TAB PO SCH (08:01)
[2023-03-10] MEDS: Lisinopril 20 MG TAB PO SCH (08:01)
[2023-03-10] MEDS: Nebivolol HCl 5 MG TAB PO SCH (08:01)
[2023-03-10] MEDS: Amlodipine 10 MG TAB PO SCH (08:02)
[2023-03-10] MEDS: Potassium Chloride 20 MEQ in Premix Bag 1 BAG IVPB SCH ×2 (09:38→11:20)
[2023-03-10 09:40] LABS: Magnesium 1.4 mg/dL (1.6-2.6)
[2023-03-10] MEDS ORDERED: Magnesium Sulfate In Water 4 GM in Premix Bag 1 BAG IVPB SCH (11:00)
[2023-03-10 12:05] LABS: Creatinine, Urine 254.6 mg/dL (63-166); Potassium, Urine 35.1 mmol/L
[2023-03-11] MEDS: cloNIDine 0.2 MG TAB PO PRN (00:55)
[2023-03-11] MEDS: Piperacillin/Tazobactam 3.375 GM in Sodium Chloride 0.9% 100 ML IVPB SCH ×2 (00:59→08:40)
[2023-03-11 01:00] VITALS: TEMP 98.1
[2023-03-11] MEDS: Potassium Chloride 20 MEQ TAB PO SCH (01:00)
[2023-03-11 06:40] LABS: #Eosinphils 0.1 thou/uL (0.0-0.7); #Monocytes 0.2 thou/uL (0.11-0.59); #Neutrophils 2.1 thou/uL (1.40-6.50); %Basophils 0.5 % (0.0-1.0); %Eosinophils 1.4 % (0.0-10.0); %Lymphocytes 44.7 % (21.0-51.0); %Monocytes 4.5 % (0.0-10.0); %Neutrophils 48.9 % (42.0-75.0); Hemoglobin 14.2 g/dL (14.0-18.0); Mean Corpuscular HGB CONC 34.5 g/dL (32.0-36.0); Mean Corpuscular Hemoglobin 30.5 pg (27.0-31.0); Mean Corpuscular Volume 88.4 fl (78.0-98.0); Mean Platelet Volume 10.8 fL (7.4-10.4); Platelet Count 143 10x3/uL (130-400); RBC Distribution Width 13.8 % (11.5-14.5); Red Blood Cell (RBC) Count 4.66 mill/uL (4.70-6.10); White Blood Cell (WBC) Count 4.2 10x3/uL (4.8-10.8)
[2023-03-11 07:08] LABS: Anion Gap 15 mmol/L (10-20); BUN (Urea Nitrogen) 12 mg/dL (8.4-25.7); Calc. Creatinine Clearance 105 mL/min (70-130); Calcium 8.9 mg/dL (7.8-10.44); Carbon Dioxide 30 mmol/L (23-31); Chloride 102 mmol/L (98-107); Estimated GFR 81; Glucose 176 mg/dL (83-110); Potassium 3.5 mmol/L (3.5-5.1); Sodium 143 mmol/L (136-145)
[2023-03-11] MEDS ORDERED: Potassium Chloride 20 MEQ TAB PO SCH ×2 (08:00→09:15)
[2023-03-11] MEDS ORDERED: Magnesium Oxide 400 MG TAB PO SCH (09:15)
[2023-03-11] MEDS: Amlodipine 10 MG TAB PO SCH (10:18)
[2023-03-11] MEDS: Apixaban 5 MG TAB PO SCH (10:18)
[2023-03-11] MEDS: Atorvastatin Calcium 20 MG TAB PO SCH (10:18)
[2023-03-11] MEDS: Lisinopril 20 MG TAB PO SCH (10:19)
[2023-03-11] MEDS: Nebivolol HCl 5 MG TAB PO SCH (10:19)
[2023-03-11 13:11] VITALS: BP 136/78
[2023-03-12] MEDS ORDERED: Magnesium Oxide 400 MG TAB PO SCH (09:00)
== END 2023-03-11 13:41 | disposition home or self-care (01) | DRG 871 ==
LOC: ERS 20:00 → T4-A 23:08 → OBSVTOIN 03-08 14:07
PROVIDERS: ADMIT Student in an Organized Health Care Education/Training Program; ATTEND Internal Medicine
DX: A41.89 Other specified sepsis (principal); U07.1 COVID-19; E87.20 Acidosis, unspecified; I48.91 Unspecified atrial fibrillation; E11.9 Type 2 diabetes mellitus without complications; I10 Essential (primary) hypertension; E83.42 Hypomagnesemia; E87.6 Hypokalemia; Z79.01 Long term (current) use of anticoagulants; Z79.899 Other long term (current) drug therapy; Z98.890 Other specified postprocedural states; Z79.84 Long term (current) use of oral hypoglycemic drugs
CPT/HCPCS: 36415; 36416; 71045; 80048; 80053; 81001; 82436; 82570; 83605; 83690; 83735; 84133; 84145; 84300; 84484; 85025; 87040; 87086; 87635; 93005; 93010; 94760; 96365; 96367; 96376; G0378; J1815; J2543; J3475; J3480; J3490; J7050

== ENCOUNTER 2023-10-26 14:20 | Outpatient (CLI) | payer MEDICARE, BC | END 2023-10-26 14:21 | disposition home or self-care (01) | LOC: ULT 14:20 | PROVIDERS: ATTEND Family Medicine | DX: M79.89 Other specified soft tissue disorders (principal); M79.662 Pain in left lower leg ==

== ENCOUNTER 2024-01-23 13:16 | Inpatient (IN) | payer MEDICARE, BC ==
[2024-01-23] MEDS ORDERED: dilTIAZem 125 MG/25 ML SDV ONE (14:01)
[2024-01-23 14:02] LABS: #Basophils 0.08 10x3/uL (0.0-0.2); %Eosinophils 2.3 % (0.0-10.0); %Lymphocytes 27.3 % (21.0-51.0); Hematocrit 44.1 % (42.0-52.0); Hemoglobin 15.7 g/dL (14.0-18.0); Mean Corpuscular HGB CONC 35.6 g/dL (32.0-36.0); Mean Corpuscular Hemoglobin 29.6 pg (27.0-31.0); Mean Corpuscular Volume 83.2 fL (78.0-98.0); Mean Platelet Volume 10.5 fL (7.4-10.4); Platelet Count 205 10x3/uL (130-400); RBC Distribution Width 13.5 % (11.5-14.5)
[2024-01-23] MEDS ORDERED: Sodium Chloride 0.9% 100 ML ONE (14:02)
[2024-01-23 14:18] LABS: ALT (SGPT) 20 U/L (8-55); AST (SGOT) 23 U/L (5-34); Albumin 4.4 g/dL (3.4-4.8); Alkaline Phosphatase 51 U/L (40-110); Anion Gap 22 mmol/L (10-20); BUN (Urea Nitrogen) 12 mg/dL (8.4-25.7); Bilirubin, Total 2.2 mg/dL (0.2-1.2); Calc. Creatinine Clearance 0 mL/min (70-130); Calcium 10.6 mg/dL (7.8-10.44); Carbon Dioxide 21 mmol/L (23-31); Chloride 98 mmol/L (98-107); Estimated GFR 64; Globulin 3.4 g/dL (2.4-3.5); Glucose 199 mg/dL (83-110); Potassium 2.4 mmol/L (3.5-5.1); Protein, Total 7.8 g/dL (5.8-8.1); Sodium 139 mmol/L (136-145)
[2024-01-23 14:21] LABS: Troponin I Less than 0.010 ng/mL (< 0.028)
[2024-01-23] MEDS ORDERED: Potassium Chloride 20 MEQ TAB ONE (16:50)
[2024-01-23] MEDS ORDERED: dilTIAZem 125 MG in Sodium Chloride 0.9% 100 ML IVPB SCH (18:15)
[2024-01-23 18:19] VITALS: BMI 29.0
[2024-01-23] MEDS ORDERED: Glucagon 1 MG/ML KIT IM PRN (18:47)
[2024-01-23] MEDS ORDERED: Acetaminophen 325 MG TAB PO PRN (18:47)
[2024-01-23] MEDS ORDERED: Dextrose 50% Abboject 50 ML SYRINGE SLOW IVP PRN (18:47)
[2024-01-23] MEDS ORDERED: Dextrose 5% in Water 1,000 ML IV PRN (18:47)
[2024-01-23 19:40] LABS: Troponin I 0.016 ng/mL (< 0.028)
[2024-01-23] MEDS: traMADol HCl 50 MG TAB PO PRN (19:45)
[2024-01-23] MEDS: Amlodipine 10 MG TAB PO SCH (21:49)
[2024-01-23] MEDS: Nebivolol HCl 5 MG TAB PO SCH (21:50)
[2024-01-23] MEDS: Lisinopril 10 MG TAB PO SCH (21:50)
[2024-01-23 23:18] LABS: Troponin I 0.016 ng/mL (< 0.028)
[2024-01-23] MEDS: cloNIDine 0.2 MG TAB PO PRN (23:56)
[2024-01-24] MEDS: HYDROcodone/Acetaminophen 10/325 mg Tablet PO PRN (01:58)
[2024-01-24 04:51] LABS: #Basophils 0.06 10x3/uL (0.0-0.2); %Basophils 0.6 % (0.0-1.0); %Eosinophils 2.1 % (0.0-10.0); %Lymphocytes 30.7 % (21.0-51.0); %Monocytes 6.5 % (0.0-10.0); %Neutrophils 59.8 % (42.0-75.0); Hematocrit 41.6 % (42.0-52.0); Hemoglobin 14.6 g/dL (14.0-18.0); Mean Corpuscular HGB CONC 35.1 g/dL (32.0-36.0); Mean Corpuscular Hemoglobin 30.4 pg (27.0-31.0); Mean Corpuscular Volume 86.7 fL (78.0-98.0); Mean Platelet Volume 10.4 fL (7.4-10.4); Platelet Count 216 10x3/uL (130-400); RBC Distribution Width 13.8 % (11.5-14.5)
[2024-01-24 05:21] LABS: Anion Gap 17 mmol/L (10-20); BUN (Urea Nitrogen) 15 mg/dL (8.4-25.7); Calc. Creatinine Clearance 69 mL/min (70-130); Carbon Dioxide 28 mmol/L (23-31); Chloride 100 mmol/L (98-107); Estimated GFR 52; Glucose 190 mg/dL (83-110); Potassium 2.7 mmol/L (3.5-5.1); Sodium 142 mmol/L (136-145)
[2024-01-24] MEDS: Morphine 4 MG/ML VIAL SLOW IVP SCH (06:55)
[2024-01-24] MEDS: HumaLOG 300 UNITS/3 ML VIAL SC PRN (07:02)
[2024-01-24] MEDS: Lisinopril 20 MG TAB PO SCH (10:46)
[2024-01-24] MEDS: Magnesium Oxide 400 MG TAB PO SCH (10:46)
[2024-01-24] MEDS: Pantoprazole DR 40 MG TAB PO SCH (10:46)
[2024-01-24] MEDS: Amlodipine 5 MG TAB PO SCH (10:46)
[2024-01-24] MEDS: Nebivolol HCl 5 MG TAB PO SCH (10:46)
[2024-01-24] MEDS: Apixaban 5 MG TAB PO SCH ×2 (10:47→12:08)
[2024-01-24] MEDS: Atorvastatin Calcium 20 MG TAB PO SCH (10:47)
[2024-01-24] MEDS: Potassium Chloride 20 MEQ TAB PO SCH (10:58)
[2024-01-24] MEDS: Ondansetron PF 4 MG/2 ML Vial ONE (12:56)
[2024-01-24] MEDS: traMADol HCl 50 MG TAB PO PRN (13:00)
[2024-01-24 14:20] VITALS: BMI 29.0
[2024-01-24] MEDS: metFORMIN 500 MG TAB PO SCH (16:25)
[2024-01-24] MEDS: Morphine 2 MG/ML VIAL SLOW IVP SCH (22:45)
[2024-01-24] MEDS: Bisacodyl 5 MG TAB PO PRN (22:46)
[2024-01-24 23:32] LABS: Potassium 3.4 mmol/L (3.5-5.1)
[2024-01-25] MEDS: Potassium Chloride 20 MEQ TAB PO SCH ×2 (00:36→16:21)
[2024-01-25] MEDS: HYDROcodone/Acetaminophen 5/325 mg Tablet PO PRN ×2 (02:20→12:11)
[2024-01-25 04:10] LABS: #Basophils 0.09 10x3/uL (0.0-0.2); %Lymphocytes 39.8 % (21.0-51.0); Hematocrit 39.6 % (42.0-52.0); Hemoglobin 13.8 g/dL (14.0-18.0); Mean Corpuscular HGB CONC 34.8 g/dL (32.0-36.0); Mean Corpuscular Hemoglobin 30.2 pg (27.0-31.0); Mean Corpuscular Volume 86.7 fL (78.0-98.0); Mean Platelet Volume 10.4 fL (7.4-10.4); Platelet Count 193 10x3/uL (130-400); RBC Distribution Width 14.1 % (11.5-14.5); Red Blood Cell (RBC) Count 4.57 mill/uL (4.70-6.10)
[2024-01-25 04:27] LABS: Hemoglobin A1c 8.3 % (4.0-6.0)
[2024-01-25 04:35] LABS: Anion Gap 14 mmol/L (10-20); BUN (Urea Nitrogen) 19 mg/dL (8.4-25.7); Calc. Creatinine Clearance 85 mL/min (70-130); Calcium 9.9 mg/dL (7.8-10.44); Carbon Dioxide 29 mmol/L (23-31); Cardiac Risk 4.7 (Less than 4.5); Chloride 104 mmol/L (98-107); Cholesterol 140 mg/dl (< 200 Desired); Estimated GFR 67; Glucose 166 mg/dL (83-110); HDL Cholesterol 30 mg/dL (>60 Neg Risk); LDL Cholesterol, Calculated 79 mg/dL; Potassium 3.1 mmol/L (3.5-5.1); Sodium 144 mmol/L (136-145); Triglycerides 153 mg/dL (Less than 150)
[2024-01-25] MEDS: CO Q-10 CAPSULE 100 MG PO SCH (09:55)
[2024-01-25] MEDS: Aspirin 81 mg Enteric Coated Tablet PO SCH (09:56)
[2024-01-25 17:08] VITALS: BP 133/67; TEMP 98.1
[2024-01-25] MEDS ORDERED: Atorvastatin Calcium 40 MG TAB PO SCH (21:00)
== END 2024-01-25 18:00 | disposition home or self-care (01) | DRG 69 ==
LOC: ERS 13:16 → 2NO 15:38
PROVIDERS: ADMIT Internal Medicine; ATTEND Internal Medicine
PROC: 4A00X4Z Measurement of Central Nervous Electrical Activity, External Approach (ICD-10-PCS; principal; 2024-01-24)
DX: G45.9 Transient cerebral ischemic attack, unspecified (principal); I48.0 Paroxysmal atrial fibrillation; S09.90XA Unspecified injury of head, initial encounter; E11.9 Type 2 diabetes mellitus without complications; E83.52 Hypercalcemia; I10 Essential (primary) hypertension; E66.9 Obesity, unspecified; E87.6 Hypokalemia; I08.1 Rheumatic disorders of both mitral and tricuspid valves; R29.90 Unspecified symptoms and signs involving the nervous system; Z79.899 Other long term (current) drug therapy; Z90.79 Acquired absence of other genital organ(s); Z98.890 Other specified postprocedural states; Z68.29 Body mass index [BMI] 29.0-29.9, adult
CPT/HCPCS: 36415; 36416; 70450; 70551; 71045; 80048; 80053; 80061; 83036; 84443; 84484; 85025; 93005; 93306; 93880; 94760; 95700; 95711; 95819; 96374; J1815; J2272; J2405; J3490

== ENCOUNTER 2024-07-12 05:34 | Day surgery (SDC) | payer MEDICARE, BC ==
[2024-07-11 12:44] VITALS: BMI 29.2
[2024-07-12] MEDS ORDERED: Lidocaine 1% (PF) 30 ML VIAL ONE (06:30)
[2024-07-12] MEDS ORDERED: Propofol 1,000 MG/100 ML VIAL IV ONE (06:30)
== END 2024-07-12 09:18 | disposition home or self-care (01) ==
LOC: SDC 05:34
PROVIDERS: ATTEND Internal Medicine Gastroenterology
PROC: 0DBL8ZZ Excision of Transverse Colon, Via Natural or Artificial Opening Endoscopic (ICD-10-PCS; principal; 2024-07-12)
PROC: 0DB68ZZ Excision of Stomach, Via Natural or Artificial Opening Endoscopic (ICD-10-PCS; 2024-07-12)
DX: Z12.11 Encounter for screening for malignant neoplasm of colon (principal); K63.5 Polyp of colon; K31.7 Polyp of stomach and duodenum; K44.9 Diaphragmatic hernia without obstruction or gangrene; K29.80 Duodenitis without bleeding; K57.30 Diverticulosis of large intestine without perforation or abscess without bleeding; I10 Essential (primary) hypertension; I48.91 Unspecified atrial fibrillation; E11.9 Type 2 diabetes mellitus without complications; E78.5 Hyperlipidemia, unspecified; D50.0 Iron deficiency anemia secondary to blood loss (chronic); Z90.79 Acquired absence of other genital organ(s); Z85.038 Personal history of other malignant neoplasm of large intestine; Z79.01 Long term (current) use of anticoagulants; Z79.84 Long term (current) use of oral hypoglycemic drugs; Z79.899 Other long term (current) drug therapy
CPT/HCPCS: 43251; 45385; J2704; 88305